=== PATIENT | male | born 1945 | race Caucasian/White ===

== ENCOUNTER → 2018-03-11 09:05 | Outpatient (CLI) | payer MEDICARE, OTHER, SELFPAY ==
[2018-03-11 11:43] LABS: PSA,Total- Diagnostic 8.25 ng/mL (0.0-4.0)
== END ==
PROVIDERS: Family Provider Family Medicine; PCP Family Medicine; Visit Provider Urology
DX: R97.20 Elevated prostate specific antigen [PSA] (principal)
CPT/HCPCS: 36415; 84153

== ENCOUNTER → 2018-06-11 16:59 | Outpatient (CLI) | payer MEDICARE, OTHER, SELFPAY ==
--- NOTE | 2018-06-11 17:05 | RAD_ITS ---
STUDY: X-RAY - PELVIS AND BILATERAL HIPS REASON FOR EXAM: Male, 73 years old. Bilateral hip pain TECHNIQUE: Radiological exam, hip, bilateral, with pelvis when performed; minimum of 5 views COMPARISON: None. FINDINGS: There is a non-specific bowel gas pattern. Normal visualized soft tissue structures. Normal bilateral iliac wings, sacroiliac joints and visualized sacrum. Normal bilateral superior and inferior pubic rami. Normal pubic symphysis. Normal bilateral ischial tuberosities. There are mild arthritic changes of the right hip joint. There are several small calcifications medial to the right lesser trochanter. There are mild arthritic changes of the left hip joint. RAD/Hips B/L min 2 views w/ Pelvis IMPRESSION: 1. There are mild arthritic changes of the left and right hip joints. 2. There are several small calcifications medial to the right lesser trochanter which may represent calcific tendinitis/bursitis. 3. The bony pelvis is intact with no evidence of fracture or lytic or blastic osseous process. Electronically Signed: Wes Prabhakar MD at 19:23 EDT , Service support ,
== END ==
PROVIDERS: Family Provider Family Medicine; PCP Family Medicine; Visit Provider Family Medicine
DX: M25.552 Pain in left hip (principal); M25.551 Pain in right hip
CPT/HCPCS: 73521

== ENCOUNTER → 2018-07-15 16:58 | Outpatient (CLI) | payer MEDICARE, OTHER, SELFPAY | PROVIDERS: Family Provider Family Medicine; PCP Family Medicine; Visit Provider Nurse Practitioner Adult Health | DX: R31.9 Hematuria, unspecified (principal) | CPT/HCPCS: 87077; 87086; 87088; 87186 ==

== ENCOUNTER → 2018-07-16 09:37 | Outpatient (CLI) | payer MEDICARE, OTHER, SELFPAY | PROVIDERS: Family Provider Family Medicine; PCP Family Medicine; Visit Provider Nurse Practitioner Adult Health | DX: R33.9 Retention of urine, unspecified (principal) | CPT/HCPCS: 76770 ==

== ENCOUNTER → 2018-12-16 09:59 | Outpatient (CLI) | payer MEDICARE, SELFPAY ==
[2017-11-22 14:54] VITALS: BMI 31.0
[2018-12-16 10:55] LABS: PSA,Total- Diagnostic 6.08 ng/mL (0.0-4.0)
--- OUTSIDE RECORDS SUMMARY | 2019-02-17 12:30 | XMS RPT_ITS ---
:1945 Author Organization OHIP Care Team Providers Name Role Phone Lopez Flowers Attending Unavailable Lopez Flowers Referring Unavailable Pio Amaya Primary Care Unavailable Lopez Flowers Attending Unavailable Lopez Flowers Referring Unavailable Pio Amaya Primary Care Unavailable Pio Amaya Attending Unavailable Pio Amaya Referring Unavailable Pio Amaya Primary Care Unavailable Akua Obrien Attending Unavailable Pio Amaya Primary Care Unavailable Akua Obrien Attending Unavailable Pio Amaya Primary Care Unavailable PROBLEMS PROBLEMS DATE TYPE CONDITION / CODE ATTENDING STATUS SOURCE 12/16/2018 Unknown R97.20 - Lopez Flowers Active [facility] prostate Hospital specific antigen Repository [PSA] / R97.20(ICD-10) 07/16/2018 Unknown R31.0 - Akua Pinzon Active [facility] hematuria / M [facility] R31.0(ICD-10) Hospital Repository PROCEDURES PROCEDURES No Procedure Records FoundRESULTS RESULTS PSA,TOTAL- DIAGNOSTIC Collected: 12/16/2018 Status: F Source: MAG[facility] 10:13 AM [facility] REPOSITORY TYPE CODE TESTS RESULT OUT OF REFERENCE UNITS RANGE LAB L501.9940 0.0-4.0 ng/mL PSA, High DIAGNOSTIC 6.08 Result Comment: This test was performed using the TPSA assay method for the MicroEdge chemistry system. Values obtained with different assay methods cannot be used interchangably. When changing PSA assays in the course of monitoring a patient, additional sequential testing should be carried out to confirm baseline values. Performed By: #### L501.9940 #### [facility] [address] [place], [address] KIDNEY AND BLADDER Observed: 07/16/2018 Status: F Source: D[place]TM[place] 9:42 AM [facility] REPOSITORY [facility] Imaging Services [address] [place] [address] Kidney and Bladder MR#: [id number] Acct: [id number] Name: PILAR SAMANO Jr. 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 Urinary retention. TECHNIQUE: Ultrasound evaluation of the kidneys was performed with real-time and static orourke-scale imaging. COMPARISON: Comparison is made with prior examination dated November 30, 2016. FINDINGS: RIGHT KIDNEY: Normal location of the right kidney, which is normal in size. The right kidney measures 11.1 cm x 7 cm x 5.8 cm. There is a normal cortex of the right kidney. The renal cortex measures 1.9 cm. There is a 3.4 cm x 4.2 cm x 3.5 cm cyst. There are no right renal calculi. There is no right hydronephrosis. DISTAL RIGHT URETER: There is non-visualization of the distal right ureter. There is no demonstrated right ureterovesical junction calculus. There is a visualized right ureteral jet. LEFT KIDNEY: Normal location of the left kidney, which is normal in size. The left kidney measures 9.6 cm x 4.7 cm x 5.4 cm. There is a normal cortex of the left kidney. The renal cortex measures 1.4 cm. There is no left renal mass or cyst. There are no left renal calculi. There is no left hydronephrosis. DISTAL LEFT URETER: There is non-visualization of the distal left ureter. There is no demonstrated left ureterovesical junction calculus. There is a visualized left ureteral jet. BLADDER: The distended urinary bladder has a volume of 376 ml. The empty urinary bladder has a volume of 1-60 ml. Once again, there is irregularity along the posterior wall of the urinary bladder which may represent trabeculation. There is no demonstrated mass within the urinary bladder. There are no demonstrated bladder calculi. US/Kidney and Bladder IMPRESSION: Stable cyst in the right kidney. Stable irregular thickening at the base of the bladder wall. Electronically Signed: Franklin Wills MD at 11:37 EDT Tel [phone], Service support , CC: Pio Amaya MD; Akua Obrien NP Hand Salter: Signed Observed: 07/15/2018 Status: F Source: [place] CULTURE, URINE 2:00 PM [facility] REPOSITORY Urine Culture ORGANISM 1: Staphylococcus lentus [place] Count >100,000 Staphylococcus lentus: REACTION Benzylpenicillin NF >=0.5 R Cefoxitin *NF - Inducable Clindamycin [place]istan - Gentamicin $ <=0.5 S Levofloxacin $ <=0.12 S Nitrofurantoin $ <=16 S Oxacillin NF <=0.25 S Rifampin $$ <=0.5 S Tetracycline NF 2 S Vancomycin $ 1 S (NF) indicates non-formulary drug at [facility]. Approval by Infectious Disease Specialist required before non-formulary drugs may be ordered and/or dispensed. * CLSI guidelines does not recommend testing of cephalosporins. This interpretation is deduced from Beta-lactam/penicillin results. Performed By: #### M100.0650 #### [facility] [address] [place], [address] HIPS B/L MIN 2 Observed: 06/11/2018 Status: F Source: [place] VIEWS W/ PELVIS 5:05 PM [facility] REPOSITORY [facility] Imaging Services [address] [place] [address] Hips B/L min 2 views w/ Pelvis MR#: [id number] Acct: [id number] Name: PILAR SAMANO Jr. Rep #: [id number] : 1945 M 73 From: Wes Prabhakar MD PCP: Pio Amaya MD Status: REG CLI Study: Hips B/L min 2 views w/ Pelvis Date of Exam: 06/11/18 Exam# [id number] Ordering Dr: Pio Amaya MD STUDY: X-RAY - PELVIS AND BILATERAL HIPS REASON FOR EXAM: Male, 73 years old. Bilateral hip pain TECHNIQUE: Radiological exam, hip, bilateral, with pelvis when performed; minimum of 5 views COMPARISON: None. FINDINGS: There is a non-specific bowel gas pattern. Normal visualized soft tissue structures. Normal bilateral iliac wings, sacroiliac joints and visualized sacrum. Normal bilateral superior and inferior pubic rami. Normal pubic symphysis. Normal bilateral ischial tuberosities. There are mild arthritic changes of the right hip joint. There are several small calcifications medial to the right lesser trochanter. There are mild arthritic changes of the left hip joint. RAD/Hips B/L min 2 views w/ Pelvis IMPRESSION: 1. There are mild arthritic changes of the left and right hip joints. 2. There are several small calcifications medial to the right lesser trochanter which may represent calcific tendinitis/bursitis. 3. The bony pelvis is intact with no evidence of fracture or lytic or blastic osseous process. Electronically Signed: Wes Prabhakar MD at 19:23 EDT , Service support , CC: Pio Amaya MD Hand Salter: Signed PSA,TOTAL- DIAGNOSTIC Collected: 03/11/2018 Status: F Source: [place] 9:25 AM [facility] REPOSITORY TYPE CODE TESTS RESULT OUT OF REFERENCE UNITS RANGE LAB L501.9940 0.0-4.0 ng/mL PSA, High DIAGNOSTIC 8.25 Result Comment: This test was performed using the TPSA assay method for the MicroEdge chemistry system. Values obtained with different assay methods cannot be used interchangably. When changing PSA assays in the course of monitoring a patient, additional sequential testing should be carried out to confirm baseline values. Performed By: #### L501.9940 #### [facility] [address] [place], [address] ALLERGIES ALLERGIES DATE TYPE / CODE NAME / CODE REACTION SEVERITY SOURCE 11/22/2017 Drug levofloxacin Nausea Unknown [facility] Allergy/4160 /[id number]( [facility] [address](SNOMED RXNORM) Repository CT) ENCOUNTERS ENCOUNTERS ADMIT/DISCHARGE ACCOUNT ADMITTING ENCOUNTER LOCATION SOURCE NUMBER CLASS 12/16/2018 [id number] Ambulatory [facility] 2 [facility] ing:LAB Repository 07/16/2018 [id number] Ambulatory [facility] 4 [facility] ing:US Repository 07/15/2018 [id number] Ambulatory [facility] 9 [facility] ing:LABSPEC Repository 06/11/2018 [id number] Ambulatory [facility] 9 [facility] ing:MTRAD Repository 03/11/2018 [id number] Ambulatory [facility] 8 [facility] ing:LAB Repository PAYERS PAYERS ENCOUNTER GUARANTOR PAYER SUBSCRIBER SOURCE 12/16/2018 PILAR Guallpa Primary PILAR Mercedes [place] [facility] Corby Titus: [place], [place] Number: [id number] Repository [address]18[address]Dcc: [phone] [id number] [phone] () Date:2018-12-16 12/16/2018 Secondary NOT GIVENUNK [facility] Insurance[facility]LF [facility]Y [facility]: Effective Repository Date:2018-12-16 07/16/2018 PILAR R Primary PILAR R [facility] [place] Insurance:MEDICARE [place] Community Jr.[address] BPolicy Jr.: [place], [place] Number: [id number] Repository [address]Nai: 330 [id number] [phone] () Date:2018-07-15 07/16/2018 Secondary PILAR R Mago Insurance:UMR KAEL [place] Community [id number] Number: Jr.: [facility] [id number] Repository Date:0909-30-02OG [address] [place] [id number]: 07/16/2018 Tertiary NOT GIVENUNK [facility] Insurance:SELF PAY [facility] Number: Effective Repository Date:2018-07-15 07/15/2018 PILAR R Primary PILAR R [facility] [place] Insurance:MEDICARE [place] Community Jr[address] BPolicy Jr.: [place], [place] Number: [id number] Repository [address]Oqx: 330 [id number] [phone] () Date:2018-07-15 07/15/2018 Secondary PILAR R Mago Insurance:UMR KAEL [place] Community [id number] Number: Jr.: Hospital [id number] Repository Date:[id number] [address] [place] [phone]: 07/15/2018 Tertiary NOT GIVENUNK [place]ago Insurance:SELF PAY [facility] Number: Effective Repository Date:2018-07-15 06/11/2018 PILAR R Primary PILAR R [facility] [place] Insurance:MEDICARE [place] Community Jr.[address] BPolicy Jr.: [place] Number: [id number] Repository 89[address]Uls: [phone] [id number] [phone] () Date:2018-06-11 06/11/2018 Secondary PILAR R Mago Insurance:UMR KAEL [place] [facility] [address]Chsmlk Number: JrCelia: Hospital [id number] Repository Date:[id number] [address] [place] [id number]: 06/11/2018 Tertiary NOT GIVENUNK Mago Insurance:SELF PAY Community [facility] Number: Effective Repository Date:2018-06-11 03/11/2018 PILAR R Primary PILAR R [place]ago [place] [facility] Corby Titus: [place], [place] Number: [id number] Repository [address]Qiu: [phone] [id number] [phone] () Date:2018-03-11 03/11/2018 Secondary PILAR R [facility] Insurance:UMR [facility]AEL [facility] [address]Zulvzo Number: Jr.: Hospital [id number] Repository Date:[id number] [address] [place] [id number]: 03/11/2018 Tertiary NOT GIVENUNK Mago Insurance:SELF PAY Community [facility] Number: Effective Repository Date:2018-03-11
== END ==
PROVIDERS: Family Provider Family Medicine; PCP Family Medicine; Referring Provider Urology; Visit Provider Urology
DX: R97.20 Elevated prostate specific antigen [PSA] (principal)
CPT/HCPCS: 36415; 84153

== ENCOUNTER → 2019-02-13 10:12 | Outpatient (CLI) | payer MEDICARE, SELFPAY ==
[2017-11-22 14:54] VITALS: BMI 31.0
[2019-02-13 13:07] LABS: Anion Gap 9 (5-15); BUN 26 mg/dL (7-18); BUN/Creat Ratio 24.5 RATIO (10-20); Calcium,Total 9.1 mg/dL (8.5-10.1); Chloride 103 mmol/L (98-107); Cholesterol 115 mg/dL (200); Creatinine, Serum 1.06 mg/dL (0.70-1.30); EST Glomerular Filtration Rate 73 mL/min (>60); Est Glom Filt Rate - Afr Amer 88 mL/min (>60); Glucose 136 mg/dL (74-106); High Density Lipoprotein 46 mg/dL; Potassium 3.9 mmol/L (3.5-5.1); Sodium Level 141 mmol/L (136-145); Triglycerides 72 mg/dL; Very Low Density Lipoprotein 14 mg/dL (5-40)
[2019-02-13 13:23] LABS: Vitamin D,25 Hydroxy 27.2 ng/mL (29.95-100.01)
== END ==
PROVIDERS: Family Provider Family Medicine; PCP Family Medicine; Referring Provider Family Medicine; Visit Provider Family Medicine
DX: Z00.00 Encounter for general adult medical examination without abnormal findings (principal); E55.9 Vitamin D deficiency, unspecified
CPT/HCPCS: 36415; 80048; 80061; 82306

== ENCOUNTER → 2019-06-11 14:07 | Outpatient (CLI) | payer MEDICARE, SELFPAY ==
[2017-11-22 14:54] VITALS: BMI 31.0
[2019-06-11 15:34] LABS: PSA,Total- Diagnostic 6.19 ng/mL (0.0-4.0)
== END ==
PROVIDERS: Family Provider Family Medicine; PCP Family Medicine; Referring Provider Urology; Visit Provider Urology
DX: R97.20 Elevated prostate specific antigen [PSA] (principal)
CPT/HCPCS: 36415; 84153

== ENCOUNTER → 2019-08-17 09:43 | Outpatient (CLI) | payer MEDICARE, SELFPAY ==
[2017-11-22 14:54] VITALS: BMI 31.0
[2019-08-17 12:35] LABS: Anion Gap 5 (5-15); BUN 23 mg/dL (7-18); BUN/Creat Ratio 21.1 RATIO (10-20); Calcium,Total 9.5 mg/dL (8.5-10.1); Chloride 104 mmol/L (98-107); Creatinine, Serum 1.09 mg/dL (0.70-1.30); EST Glomerular Filtration Rate 70 mL/min (>60); Est Glom Filt Rate - Afr Amer 85 mL/min (>60); Glucose 151 mg/dL (74-106); Potassium 3.9 mmol/L (3.5-5.1); Sodium Level 138 mmol/L (136-145)
== END ==
PROVIDERS: Family Provider Family Medicine; PCP Family Medicine; Visit Provider Family Medicine
DX: I10 Essential (primary) hypertension (principal)
CPT/HCPCS: 36415; 80048

== ENCOUNTER → 2020-02-08 | Outpatient (CLI) | payer MEDICARE, SELFPAY ==
[2017-11-22 14:54] VITALS: BMI 31.0
== END | disposition home or self-care (01) ==
LOC: LABSPEC 16:27
PROVIDERS: PCP Family Medicine; Referring Provider Urology; Visit Provider Urology
DX: N39.0 Urinary tract infection, site not specified (principal)
CPT/HCPCS: 87077; 87086; 87088; 87186

== ENCOUNTER → 2020-05-16 09:36 | Outpatient (CLI) | payer MEDICARE, SELFPAY ==
[2017-11-22 14:54] VITALS: BMI 31.0
[2020-05-16 12:23] LABS: Anion Gap 5 (5-15); BUN 22 mg/dL (7-18); BUN/Creat Ratio 19.3 RATIO (10-20); Calcium,Total 9.3 mg/dL (8.5-10.1); Chloride 105 mmol/L (98-107); Cholesterol 104 mg/dL (200); Creatinine, Serum 1.14 mg/dL (0.70-1.30); EST Glomerular Filtration Rate 67 mL/min (>60); Est Glom Filt Rate - Afr Amer 81 mL/min (>60); Glucose 164 mg/dL (74-106); High Density Lipoprotein 40 mg/dL; Sodium Level 139 mmol/L (136-145); Triglycerides 81 mg/dL; Very Low Density Lipoprotein 16 mg/dL (5-40)
== END ==
PROVIDERS: PCP Family Medicine; Visit Provider Family Medicine
DX: I10 Essential (primary) hypertension (principal)
CPT/HCPCS: 36415; 80048; 80061

== ENCOUNTER → 2020-08-18 10:23 | Outpatient (CLI) | payer MEDICARE, SELFPAY ==
[2017-11-22 14:54] VITALS: BMI 31.0
[2020-08-18 13:14] LABS: Anion Gap 7 (5-15); BUN 28 mg/dL (7-18); BUN/Creat Ratio 25.9 RATIO (10-20); Calcium,Total 9.6 mg/dL (8.5-10.1); Chloride 103 mmol/L (98-107); Cholesterol 110 mg/dL (200); Creatinine, Serum 1.08 mg/dL (0.70-1.30); EST Glomerular Filtration Rate 71 mL/min (>60); Est Glom Filt Rate - Afr Amer 86 mL/min (>60); Glucose 138 mg/dL (74-106); High Density Lipoprotein 43 mg/dL; Sodium Level 138 mmol/L (136-145); Triglycerides 60 mg/dL; Very Low Density Lipoprotein 12 mg/dL (5-40)
== END ==
PROVIDERS: PCP Family Medicine; Referring Provider Family Medicine; Visit Provider Family Medicine
DX: E11.9 Type 2 diabetes mellitus without complications (principal)
CPT/HCPCS: 36415; 80048; 80061

== ENCOUNTER 2021-11-08 08:02 | Day surgery (SDC) | payer MEDICARE, SELFPAY ==
--- NOTE | 2021-11-06 09:58 | EKG12_ITS ---
Test Reason : PREOP Blood Pressure : / mmHG Vent. Rate : 095 BPM Atrial Rate : 095 BPM P-R Int : 202 ms QRS Dur : 084 ms QT Int : 348 ms P-R-T Axes : 058 -27 021 degrees QTc Int : 437 ms Normal sinus rhythm Normal ECG Confirmed by HAWK MENDEZ, TONIO ([id number]), editorial writer HUONG WAGNER ([id number]) on 11/07/2021 7:27:46 AM Referred By: Lopez Flowers Confirmed By:TONIO ARECHIGA MD
[2021-11-06 10:49] LABS: Hematocrit 40.1 % (40-54); Mean Corp Hgb Conc 34.9 g/dL (32-36); Mean Corpuscular Hgb 31.3 pg (27.0-32.0); Mean Corpuscular Volume 89.5 fL (80-94); Mean Platelet Vol. 9.8 fl (6.2-12.0); Platelet Count 326 K/mm3 (150-450); RBC Distribution Width SD 45.6 fl (35.1-43.9); Red Blood Count 4.48 M/mm3 (4.6-6.2); White Blood Count 9.5 K/mm3 (4.4-11.0)
[2021-11-06 10:56] LABS: International Normalized Ratio 1.1; Prothrombin Time (Protime)PT. 13.4 SECONDS (11.7-14.9)
[2021-11-06 10:57] LABS: Partial Thromboplast Time 31.8 Seconds (24.1-36.2)
[2021-11-06 11:11] LABS: Hemoglobin A1c 7.1 % (3.8-5.6)
[2021-11-06 11:22] LABS: AST(SGOT) 24 U/L (15-37); Alanine Aminotransfer ALT/SGPT 42 U/L (16-61); Albumin, Serum 3.7 g/dL (3.2-5.0); Alkaline Phosphatase 71 U/L (45-117); Anion Gap 9 (5-15); BUN 32 mg/dL (7-18); BUN/Creat Ratio 24.6 RATIO (10-20); Bilirubin, Direct 0.11 mg/dL (0.00-0.30); Calcium,Total 9.5 mg/dL (8.5-10.1); Chloride 101 mmol/L (98-107); EST Glomerular Filtration Rate 57 mL/min (>60); Est Glom Filt Rate - Afr Amer 69 mL/min (>60); Globulin 3.8 g/dL (2.2-4.2); Glucose 250 mg/dL (74-106); Potassium 4.2 mmol/L (3.5-5.1); Protein, Total 7.5 g/dL (6.4-8.2); Sodium Level 134 mmol/L (136-145)
[2021-11-08] MEDS: Lactated Ringers 1,000 ML 15 ML IV (08:25)
[2021-11-08 08:48] VITALS: BP 123/80; PULSE 100; RESP 16; TEMP 37.1; O2SAT 94; BMI 29.4
[2021-11-08 09:00] LABS: Bedside Glucose 196 mg/dL (70-110)
--- NOTE | 2021-11-08 10:10 | PROS_PTH ---
PATIENT: PILAR SAMANO [place] [facility][id number] AGE/SX: 76/M ROOM: RE11/08/[address]: Dr. Lopez Flowers MD : 1945 BED: DIS: 11/08/2021 SPEC #: [id number] RECD: 11/08/21 13:23 STATUS: RIVAS FOLEY #: [id number] BEN: 11/08/21 10:[address]: Lopez Flowers DEPT: SURGICAL PATHOLOGY RECD BY: Prakash Cottrell ENTERED: 11/08/21 15:01 SP TYPE: TURP OTHR DR: Dr. Pio Amaya MD Tissues: Prostate, NOS Procedures: Surgery Specimen Level IV HEADER OPERATION: Cysto, TUR prostate, Olympus PRE-OP DIAGNOSIS: Benign prostatic hyperplasia TISSUE SUBMITTED: Prostate pieces MICROSCOPIC DIAGNOSIS Prostate, transurethral resection: Benign nodular hyperplasia, glandular and stromal types. Mild chronic inflammation. AM:jolanta 11/10/2021 MICROSCOPIC DESCRIPTION Slides are reviewed. GROSS DESCRIPTION Received is one container labeled with the patient's name and designated prostate tissue. The specimen consists of multiple irregular fragments of pink-sánchez, rubbery, soft tissue that in aggregate weigh 9 gm and measure in aggregate 6 x 6 x 0.3 cm. Historical Society Director portions are submitted in ten cassettes. / AM:jolanta 11/09/21 TC:3 CPT: 88946
--- NOTE | 2021-11-08 11:23 | HP.PCM_ITS ---
HPI - General HPI Narrative PILAR SAMANO, is a 76 M who presents for a TURP he had a TURP about 20 years ago has significant regrowth to point he need a whole TURP again had Urolift 2 years ago which failed so will remove the Urolift clips at same time. [facility] Medical History (Updated 11/01/21 @ 13:15 by Marielos Richards) Arthritis Bladder disease Bone fracture Cataracts, bilateral Diabetes Diabetes Dietary restriction Easy bruising Gastric reflux GERD (gastroesophageal reflux disease) Hearing problem High blood pressure History of pain when walking History of renal disease History of stress test Hoarseness Hx of sinus tachycardia Hypertension Indwelling urethral catheter present Non-smoker Prostate disorder Skin cancer Wears dentures Wears glasses Wears hearing aid Wears partial dentures Home Medications lisinopril-hydrochlorothiazide 1 tab PO QHS 11/22/17 [History Last Taken Unknown] omeprazole 20 mg PO QHS 11/22/17 [History Last Taken Unknown] metformin 500 mg tablet 500 mg PO DAILY 01/02/21 [History Last Taken Unknown] sulfamethoxazole-trimethoprim [Bactrim DS] 1 tab PO BID #10 tab 11/08/21 [Rx Last Taken Unknown] Allergy/AdvReac Type Severity Reaction Status Date / Time levofloxacin [From Levaquin] AdvReac Nausea Verified 11/08/21 08:23 Family History (Updated 01/02/21 @ 14:26 by Kimber Harding) Other Arthritis Diabetes Hypertension Skin cancer Surgical History (Updated 11/01/21 @ 13:15 by Marielos Richards) History of bilateral knee replacement History of prostate surgery Hx of hernia repair Hx of left cataract extraction Hx of nasal septoplasty Hx of right cataract extraction Social History (Updated 01/02/21 @ 14:27 by Kimber Harding) Smoking Status: Never smoker alcohol intake: never substance use type: does not use additional social history: Does take aspirin Does take Ibuprofen as needed Vital Signs Vital Signs Vital Signs: 11/08/21 08:48 Temperature 98.8 F Temperature Source Temporal Pulse Rate 100 Respiratory Rate 16 Respiratory Pattern Normal Blood Pressure 123/80 H Blood Pressure Mean 94 Blood Pressure Source Monitor Blood Pressure Position Semi-Fowlers Blood Pressure Location Left Arm Pulse Ox 94 Oxygen Delivery Method Room Air Weight Weight: 93 kg Body Mass Index (BMI) 29.4 Results Lab / Micro Data Result Diagrams: 11/06/21 10:18 12/13/21 10:18 Labs: Laboratory Results - last 24 hr 11/08/21 08:41: POC Glucose 196 H
--- NOTE | 2021-11-08 11:24 | PCM.DC ---
Discharge Instructions Diet Discharge Diet: No restrictions Activity Discharge Activity: Return to Normal Activity and May Not Drive (while taking narcotic pain medications.) Dressing / Incision Call your doctor if you observe: Fever of 101 or Higher Follow Up Care Please Follow Up With: Lopez Flowers MD When: Call [phone] for an appointment Test Results: Test results from this visit will be discussed in further detail at your follow-up appointment, if applicable. Discharge Plan Admission Primary Reason for Your Visit: TURP and removal of urolift (foreign object) Attending Provider: Lopez Flowers Primary Care Provider: Pio Amaya Discharge Orders/Prescriptions Prescriptions: New sulfamethoxazole-trimethoprim [Bactrim DS] 800-160 mg tablet 1 tab PO BID Qty: 10 RF: 0 Continued metformin 500 mg tablet 500 mg PO DAILY RF: 0 omeprazole 20 MG capsule,delayed release(DR/EC) 20 mg PO QHS RF: 0 lisinopril-hydrochlorothiazide 1 TABLET tablet 1 tab PO QHS RF: 0 Discontinued dutasteride 0.5 mg capsule 0.5 mg PO DAILY RF: 0 Referrals / Follow Up: Lopez Flowers MD [STAFF PHYSICIAN] - Pio Amaya MD [Primary Care Provider] - Disposition Disposition (needs filled in before D/C Order can be placed): Home, Self Care
--- NOTE | 2021-11-08 11:25 | OP.PCM_ITS ---
Report of Operation Date of Procedure: 11/08/21 Pre-Operative Diagnosis: BPH with obstruction Post-Operative Diagnosis: The same status post UroLift failed Surgery/Procedure Performed:: Transurethral section of the prostate and removal of UroLift clips Description of Surgical Findings:: Patient was taken back to the operating room after smooth induction of general anesthesia he was placed in dorsolithotomy position. This is a 76-year-old male who 20 years ago had a TURP and at this point he has significant regrowth and is going to need a whole TURP procedure again to relieve the obstruction since he has complete regrowth of the prostate essentially a fresh TURP will need to be done in order to the alleviate the obstruction he did have UroLift procedure about 2 years ago which failed and he is now having more difficulty with urination so he can remove the UroLift clips at the same time. Patient was taken back to the operating room at the smooth induction of general anesthesia he was placed in dorsolithotomy position. Went of the bladder with a 21 Salvadorean rigid cystourethroscope identified the verumontanum identify the obstructive lateral tissues and median lobe I then put in the resectoscope it was a 24 Salvadorean noncontinuous flow resectoscope I used the button first to smooth out the resection identify all the UroLift clips and using the button I removed the clips and remove them out of the bladder I then switched over to the resectoscope and then resected the floor the prostate resect the right lobe of the prostate resect the left lobe the prostate very carefully resected the apical tissue I went beyond the sphincter the sphincter was intact we did a flow test had a nice wide open flow after doing a complete resection of the prostate checked the left and right ureter orifice ease were uninjured obtain hemostasis so he can go home with a catheter and then all the chips were removed from the bladder and the patient's anesthetic was reversed he was taken back to the PACU in good condition he will go home with a Robbins catheter with a catheter will be removed next week in the office. Surgery took over an hour and a half since was essentially redoing the entire TURP. CPT 26275 Surgeon: elliot Type of Anesthesia: General Drains: 20 fr robbins Admit VTE Documentation VTE Present on Admission: No VTE Mechan Device Prophylaxis: SCD's
[2021-11-08 11:31] VITALS: BP 123/78; BP 123/80; PULSE 90; RESP 18; TEMP 36.3; O2SAT 97
[2021-11-08 11:45] VITALS: BP 109/76; BP 123/80; PULSE 85; RESP 16; O2SAT 96
[2021-11-08 11:45] LABS: Bedside Glucose 186 mg/dL (70-110)
[2021-11-08 12:00] VITALS: BP 103/62; BP 123/80; PULSE 85; RESP 16; O2SAT 98
[2021-11-08 12:08] VITALS: BP 102/81; BP 123/80; PULSE 84; RESP 16; TEMP 36.1; O2SAT 100
[2021-11-08 12:57] VITALS: BP 123/80; BP 124/63; PULSE 88; RESP 16; TEMP 36.6; O2SAT 99
== END 2021-11-08 13:21 | disposition home or self-care (01) ==
LOC: SDC 08:05 → AC 08:05
PROVIDERS: Anesthesiology; PCP Family Medicine; Referring Provider Urology; Visit Provider Urology
PROC: (CPT 52630; principal; 2021-11-08 10:00)
DX: N40.1 Benign prostatic hyperplasia with lower urinary tract symptoms (principal); N13.8 Other obstructive and reflux uropathy; R33.8 Other retention of urine; R39.12 Poor urinary stream; R39.14 Feeling of incomplete bladder emptying; E11.9 Type 2 diabetes mellitus without complications; E11.36 Type 2 diabetes mellitus with diabetic cataract; I10 Essential (primary) hypertension; K21.9 Gastro-esophageal reflux disease without esophagitis; Z79.84 Long term (current) use of oral hypoglycemic drugs; Z79.82 Long term (current) use of aspirin; Z79.899 Other long term (current) drug therapy; Z96.653 Presence of artificial knee joint, bilateral; Z90.79 Acquired absence of other genital organ(s)
CPT/HCPCS: 52630; 36415; 80048; 80076; 82962; 83036; 85027; 85610; 85730; 88305; 93005; J7120; J2405

== ENCOUNTER 2021-12-13 10:18 | Outpatient (CLI) | payer MEDICARE, SELFPAY ==
[2021-12-13 12:23] LABS: ALB/GLOB Ratio 1.1 RATIO (0.9-2.4); AST(SGOT) 17 U/L (15-37); Alanine Aminotransfer ALT/SGPT 25 U/L (16-61); Alkaline Phosphatase 53 U/L (45-117); Anion Gap 8 (5-15); BUN 23 mg/dL (7-18); BUN/Creat Ratio 20.5 RATIO (10-20); Chloride 102 mmol/L (98-107); Cholesterol 117 mg/dL (200); Creatinine, Serum 1.12 mg/dL (0.70-1.30); EST Glomerular Filtration Rate 68 mL/min (>60); Est Glom Filt Rate - Afr Amer 82 mL/min (>60); Globulin 3.5 g/dL (2.2-4.2); Glucose 166 mg/dL (74-106); High Density Lipoprotein 44 mg/dL; Potassium 4.1 mmol/L (3.5-5.1); Protein, Total 7.5 g/dL (6.4-8.2); Sodium Level 137 mmol/L (136-145); Triglycerides 79 mg/dL; Very Low Density Lipoprotein 16 mg/dL (5-40)
== END 2021-12-13 23:59 | disposition short-term general hospital (02) ==
LOC: MFPLAB 10:21
PROVIDERS: PCP Family Medicine; Referring Provider Family Medicine; Visit Provider Family Medicine
DX: I10 Essential (primary) hypertension (principal)
CPT/HCPCS: 36415; 80053; 80061

== ENCOUNTER 2022-08-22 16:54 | Emergency (ER) | payer MEDICARE, SELFPAY ==
[2022-08-22 16:55] VITALS: BP 177/102; PULSE 93; RESP 16; TEMP 36.6; O2SAT 98; BMI 30.8
--- NOTE | 2022-08-22 17:09 | EDS_ITS ---
HPI History of Present Illness Chief Complaint: Upper Extremity Injury Detail of Chief Complaint: Fall with injury to left long finger Informant: patient Narrative Narrative: Patient presents the emergency department with complaint of a fall and injury to his left long finger. Patient states that he was in the shed and the wind blew the door shut and he kind of fell backwards and he is not sure what he landed on but injured his left long finger. Patient sustained a small laceration to the palm. Patient unsure of his last tetanus. Patient is right-hand dominant. He denies striking his head. He denies neck pain, chest pain, or abdominal pain. [facility] Medical History (Updated 08/22/22 @ 18:[address] Susan Ortega, ) Arthritis Bladder disease Bone fracture Cataracts, bilateral Diabetes Diabetes Dietary restriction Easy bruising Gastric reflux GERD (gastroesophageal reflux disease) Hearing problem High blood pressure History of pain when walking History of renal disease History of stress test Hoarseness Hx of sinus tachycardia Hypertension Indwelling urethral catheter present Non-smoker Prostate disorder Skin cancer Wears dentures Wears glasses Wears hearing aid Wears partial dentures Home Medications lisinopril 10 mg-hydrochlorothiazide 12.5 mg tablet 1 tab PO QHS 11/22/17 [History Last Taken Unknown] omeprazole 20 mg capsule,delayed release 20 mg PO QHS 11/22/17 [History Last Taken Unknown] metformin 500 mg tablet 500 mg PO DAILY 01/02/21 [History Last Taken Unknown] sulfamethoxazole 800 mg-trimethoprim 160 mg tablet (Bactrim DS) 1 tab PO BID #10 tabs 11/08/21 [Rx Last Taken Unknown] Allergy/AdvReac Type Severity Reaction Status Date / Time levofloxacin [From Levaquin] AdvReac Nausea Verified 08/22/22 16:54 Family History (Updated 01/02/21 @ 14:26 by Kimber Harding) Other Arthritis Diabetes Hypertension Skin cancer Surgical History (Updated 11/01/21 @ 13:15 by Marielos Richards) History of bilateral knee replacement History of prostate surgery Hx of hernia repair Hx of left cataract extraction Hx of nasal septoplasty Hx of right cataract extraction Social History (Updated 01/02/21 @ 14:27 by Kimber Harding) Smoking Status: Never smoker alcohol intake: never substance use type: does not use additional social history: Does take aspirin Does take Ibuprofen as needed ROS ROS ED Review of Systems ROS Unobtainable: other Constitutional Constitutional ED: Reports lethargy; Denies chills, fever(s), sweats or weight loss Eyes Eyes: Denies blurry vision, change in vision or diplopia ENT ENT ED: Denies rhinorrhea or sore throat Cardiovascular Cardiovascular: Denies chest pain, orthopnea or racing heartbeat Respiratory/Chest Respiratory/Chest: Denies cough, dyspnea, dyspnea on exertion, orthopnea or sputum Gastrointestinal Gastrointestinal: Denies abdominal pain, diarrhea, nausea or vomiting Genitourinary Genitourinary ED: Denies dysuria, hematuria or urinary frequency Musculoskeletal Musculoskeletal: Reports other Details: Left long finger injury/pain with laceration to left hand ; Denies arthralgias, back pain, myalgias or neck pain Integumentary Denies abscess, Abrasions or rash Neurologic Neurologic: Denies headache(s) or weakness Psychiatric Psychiatric: Denies anxiety, depression or suicidal thoughts Endocrine Endocrinology: Denies polydipsia, polyphagia or polyuria Hematologic/Lymphatic Hematologic/Lymphatic: Denies easy bleeding, easy bruising or lymphadenopathy Allergic/Immunologic Allergic/Immunologic ED: Denies mouth swelling, tongue swelling or urticaria EXAM Physical Exam Const Vital Signs: 08/22/22 16:55 Temperature 97.8 F Temperature Source Temporal Pulse Rate 93 Respiratory Rate 16 Blood Pressure 177/102 H Blood Pressure Mean 127 Pulse Ox 98 Oxygen Delivery Method Room Air Positive well nourished and well developed General Appearance ED: well developed and NAD HEENT Reports TM's clear and moist mucous membranes normocephalic and atraumatic; Negative for trauma or tenderness Tympanic Membrane ED: Yes TM's clear Eyes PERRL and EOMs intact bilaterally General Eye ED: Negative for pale conjunctiva or scleral icterus Neck no lymphadenopathy, supple and no JVD General: Negative for tenderness Chest Wall inspection of chest normal and palpation of chest normal Chest: Negative for tenderness Resp normal respiratory effort and clear to auscultation bilaterally Effort and Inspection: Negative for respiratory distress or pain with movement Auscultation: Negative for rhonchi, wheezes or diminished lung sounds Cardio regular rate, regular rhythm, S1 normal heart sound, S2 normal heart sound and no murmurs Peripheral Pulses: pulses 2+ throughout GI normal to inspection, nondistended, normoactive bowel sounds, soft to palpation, non-tender, non-distended and no masses Back/Spine no CVA tenderness and no thoracic nor lumbar tenderness Extremity Extremity Narrative: PatientLeft hand-has deformity to the PIP joint of the left long finger with decreased ability to flex and extend the digit at the PIP joint. Neurovascular intact distally. Evaluation of the left hand reveals a 2.5 cm laceration over the palmar aspect of the third MCP joint. There is no bony tenderness on exam of the hand. General Extremety ED: Negative for edema General Extremity: Negative for edema Neuro oriented x3, CN's II-XII intact bilaterally, no sensory deficits noted and gait normal Sensorium / Orientation: awake, alert, oriented to person, oriented to place and oriented to time Motor Exam: strength 5/5 throughout and strength abnormal Psych mental status grossly normal Skin no rashes or lesions noted and no wounds MDM MDM MDM Narrative Medical decision making narrative: I recommended we reduce his dislocated finger to which I given the option of digital block versus attempting to reduce it without any type of anesthesia initially. Patient wanted to try without anesthesia initially however the finger was not easily reduced this way. I did perform a digital block using 1% lidocaine total of 8 cc. With traction I was able to reduce the dislocation. Repeat x-rays were obtained which showed good reduction with no obvious fractures. Patient will be placed in aluminum splint and referred to orthopedics for follow-up. Patient have sutures removed in 10 days. Radiography Diagnostic Testing: Three-view x-rays of the long finger of the left hand obtained interpreted by myself as a dislocation of the PIP joint without obvious new fractures. Patient was noted to have an old fracture of the middle phalanx that is well-healed. Radiology was in agreement. Post reduction x-rays 3 views obtained interpreted by myself as good reduction without evidence of fracture. Official report from radiology will be pending Procedures Lacerations Left hand laceration: Length: 0.98 in Depth: Sub Q Shape: Linear Prep: Sammy Laceration repair: Irrigated, Lidocaine and Local Irrigated (ml): 50 Number of Sutures/[place]: 2 Suture Information: Ethilon, Simple and 5-0 Discharge Plan Triage Chief Complaint: Upper Extremity Injury ED Provider: Susan Ortega Dx/Rx/DC Orders Clinical Impression: Dislocation closed, finger, Hand laceration Instructions: ED Finger Dislocation, ED Laceration Extremity Prescriptions: No Action metformin 500 mg tablet 500 mg PO DAILY omeprazole 20 MG capsule,delayed release(DR/EC) 20 mg PO QHS Label Comments: lisinopril-hydrochlorothiazide 1 TABLET tablet 1 tab PO QHS sulfamethoxazole-trimethoprim [Bactrim DS] 800-160 mg tablet 1 tab PO BID Qty: 10 0RF Primary Care Provider: Pio Amaya Referrals: Santos Uriarte DO [Med Staff - Active Staff] - 5-7 Days Pio Amaya MD [Primary Care Provider] - 10 Day for suture removal Disposition Disposition: Home, Self Care
--- NOTE | 2022-08-22 17:15 | RAD_ITS ---
STUDY: X-RAY - LEFT HAND, ATTENTION 3 FINGER REASON FOR EXAM: Male, 77 years old. injury TECHNIQUE: 3 view(s) of the finger were obtained. COMPARISON: None. FINDINGS: Normal metacarpal head. Normal metacarpophalangeal joint. Normal proximal phalanx. Healed fracture of the shaft of the middle phalanx with abundant callus formation. Normal distal phalanx. Acute dorsal dislocation of the proximal interphalangeal joint. Normal distal interphalangeal joint. RAD/Finger(s) Min 2 Views IMPRESSION: Acute dorsal dislocation of the proximal interphalangeal joint. Electronically Signed: Arcadio Ingram MD at 17:39 EDT ,
[2022-08-22] MEDS: Diphth,Pertuss(Acell),Tet Vac 0.5 ML Vial IM (17:42)
[2022-08-22] MEDS: Lidocaine 1% (20 ml mdv) 20 ML Vial 8 ML INFILT (17:55)
--- NOTE | 2022-08-22 18:06 | RAD_ITS ---
INDICATION: reduction EXAMINATION/TECHNIQUE: X-RAY - LEFT HAND XR Fingers Min 2 Views 3 VIEWS COMPARISON: 08/22/2022 FINDINGS: SOFT TISSUES: Mild soft tissue swelling is present. No radiopaque foreign body. BONES/JOINTS: Interval closed reduction of the previously noted third PIP dislocation. There is normal alignment. There is deformity of the middle phalanx of the third digit consistent with healed fracture. There is however deformity of the volar plate suspicious of a volar plate avulsion fracture. No other acute bony changes noted. RAD/Finger(s) Min 2 Views IMPRESSION: 1. Interval closed reduction of previous third PIP dislocation. 2. There is normal alignment. Irregular configuration of volar plate of the middle phalanx however suspicious of a volar plate avulsion fracture. 3. Deformity of the mid diaphysis of the middle phalanx consistent with healed fracture. 4. No other acute bony or joint space abnormalities. Electronically Signed: Arcadio Viera MD at 18:29 EDT ,
[2022-08-22 18:36] VITALS: PULSE 84; RESP 18; O2SAT 97
== END 2022-08-22 18:38 | disposition home or self-care (01) ==
PROVIDERS: Emergency Provider Emergency Medicine; PCP Family Medicine; Visit Provider Emergency Medicine
DX: S63.283A Dislocation of proximal interphalangeal joint of left middle finger, initial encounter (principal); E11.9 Type 2 diabetes mellitus without complications; S61.412A Laceration without foreign body of left hand, initial encounter; I10 Essential (primary) hypertension; W19.XXXA Unspecified fall, initial encounter; Z79.84 Long term (current) use of oral hypoglycemic drugs; Z79.899 Other long term (current) drug therapy; Z23 Encounter for immunization
CPT/HCPCS: 26340; 12001; 73140; 90471; 90715; 99282

== ENCOUNTER 2022-09-20 10:30 | Outpatient (RCR) | payer MEDICARE, SELFPAY ==
--- NOTE | 2022-08-30 14:52 | HP.OTEVAL_ITS ---
Patient's Visit Information PILAR SAMANO is a 77 year old M, referred to Occupational Therapy by Dr. Santos Uriarte, DO, with a diagnosis of left MF proximal interphalanx joint dislocation. Date of Evaluation: 08/30/22 Occupational Therapist: Amy Nation, CHIVO/Severiano, CHT - Subjective This 77 year old male was seen for OT eval with dx of dislocated of lef PIP of middle finger. this happened about 2 weeks ago. pt states he plays the guitar and would like to return to playing as soon as he can. pt states stiffness not r eally painful- pt arrives MF wilber taped to RF. pt states he is limited with use of Left hand with ADL and IADLs and would like to return to is PLOF. - ROM MP: right 0/85 left 0/70 PIP: right 0/90 left 0/55 DIP: right 0/70 left 0/0 - Edema PIP: right 7.5 left 8.4 - Quick DASH-Disab of Arm,Shoulder& Hand Quick DASH Score: 68.3325 - Goals Goal:ROM equal to unaffected hand: Yes Goal:Pharmacogeneticist/Pinch strength at least 75% of unaffected hand: Yes Goal:No pain with affected hand use: Yes Goal:PIP Circumferences equal to unaffected hand: Yes Goal:Full use of affected hand in daily activities including: Yes - Rehabilitation General Assessment: pt demo limited left MF PIP ROM, edema and weakness increasing need of assistance with yard work tasks. pt also limited with composite fist increasing difficulty with ADLs and IADls. pt would benefit from skilled OT services 1x week for 3 weeks to regain his strength and ROM to return to his PLOF. Today therapist terri. custom orthosis for wilber almanzar, ed. pt on ROM and light stretch at his end rang. pt demo understanding and agree to POC. Rehabilitation Potential: Good - Anticipated Interventions A/AAROM/PROM, Strengthening, Modalities, Orthoses, Joint Protection/Energy Conservation, Education re Diagnosis - Visit Plan Frequency: 1x/Week Duration: 3 Weeks TEXT: Thank you for the opportunity to evaluate your patient. For Medicare and Medicare HMO plans, please review the plan of care and approve it. It will need to be FAXED BACK to us at [phone] for Medicare purposes. Please let me know if there are questions or concerns regarding this plan of care. Physician Signature: Date:
--- NOTE | 2022-11-21 10:12 | HP.OT.NRP ---
PILAR SAMANO was seen in my office for initial evaluation on 08/30/22. The following Plan of Care was established for this patient: Initial Frequency: 1x/Week Initial Duration: 3 Weeks Anticipated Interventions: A/AAROM/PROM, Strengthening, Modalities, Orthoses, Joint Protection/Energy Conservation, Education re Diagnosis This patient was last seen in our office 09/20/22. Pertinent comments regarding their Occupational therapy will appear below: pt was last seen on 09/20/22 and made great gains in ROM. pt has not scheduled further apts and due to time lapse in services pt d/c. At this point I will be discontinuing this patient from occupational therapy. I would be happy to see this patient again in the future if found appropriate by the physician. Thank you! Amy Nation, OTR/L, CHT
== END 2022-09-20 19:00 | disposition home or self-care (01) ==
LOC: OT 10:30
PROVIDERS: PCP Family Medicine; Referring Provider Student in an Organized Health Care Education/Training Program; Visit Provider Student in an Organized Health Care Education/Training Program
DX: S63.283A Dislocation of proximal interphalangeal joint of left middle finger, initial encounter (principal)
CPT/HCPCS: 97140; 97166; 97530

== ENCOUNTER → 2023-03-12 | Outpatient (CLI) | payer MEDICARE, SELFPAY ==
[2023-03-12 12:06] LABS: PSA,Total - Annual Screen 2.18 ng/mL (0.00-4.00)
== END | disposition home or self-care (01) ==
LOC: LAB 10:58
PROVIDERS: PCP Family Medicine; Referring Provider Registered Nurse; Visit Provider Registered Nurse
DX: Z12.5 Encounter for screening for malignant neoplasm of prostate (principal)
CPT/HCPCS: 36415; 84153; G0103

== ENCOUNTER → 2023-07-10 | Outpatient (CLI) | payer MEDICARE, SELFPAY ==
[2023-07-10 13:02] LABS: Anion Gap 7 (5-15); BUN 19 mg/dL (7-18); Calcium,Total 9.7 mg/dL (8.5-10.1); Chloride 100 mmol/L (98-107); Cholesterol 101 mg/dL (200); EST Glomerular Filtration Rate 77 mL/min (>60); Est Glom Filt Rate - Afr Amer 93 mL/min (>60); Glucose 128 mg/dL (74-106); High Density Lipoprotein 50 mg/dL; Sodium Level 135 mmol/L (136-145); Triglycerides 56 mg/dL; Very Low Density Lipoprotein 11 mg/dL (5-40)
== END | disposition home or self-care (01) ==
LOC: MFPLAB 11:34
PROVIDERS: PCP Family Medicine; Visit Provider Family Medicine
DX: I10 Essential (primary) hypertension (principal); N39.0 Urinary tract infection, site not specified
CPT/HCPCS: 36415; 80048; 80061

== ENCOUNTER → 2023-10-02 | Outpatient (CLI) | payer MEDICARE, SELFPAY ==
[2023-10-02 11:31] LABS: Creatinine, Serum 1.03 mg/dL (0.70-1.30); EST Glomerular Filtration Rate 74 mL/min (>60); Est Glom Filt Rate - Afr Amer 90 mL/min (>60)
== END | disposition home or self-care (01) ==
LOC: LAB 09:55
PROVIDERS: PCP Family Medicine; Visit Provider Student in an Organized Health Care Education/Training Program
DX: N28.9 Disorder of kidney and ureter, unspecified (principal)
CPT/HCPCS: 36415; 82565

== ENCOUNTER 2024-03-30 22:44 | Inpatient (IN) | payer MEDICARE, SELFPAY ==
[2024-03-30 22:44] VITALS: BP 137/99; PULSE 93; RESP 16; TEMP 36.3; O2SAT 97; BMI 28.9
--- NOTE | 2024-03-30 23:49 | CT_ITS ---
INDICATION: distension, nausea, no BM EXAMINATION: CT ABDOMEN AND PELVIS WITHOUT CONTRAST - CT Abdomen And Pelvis W/O Contrast Injection TECHNIQUE: Helically acquired images were obtained of the abdomen and pelvis without oral or IV contrast. A radiation dose optimization technique was used for this scan. IV Contrast dosage and agent: None. Oral contrast: None. RADIATION DOSAGE (If Supplied By Facility): CTDIvol = ( 15.24 ) mGy, DLP = ( 822.45 ) mGycm COMPARISON: No relevant prior comparison study available FINDINGS: LOWER CHEST: Lung bases are clear. No cardiomegaly or pericardial effusion. LIVER: Homogeneous. No focal mass. GALLBLADDER AND BILIARY TREE: Cholelithiasis. No gallbladder distension or wall edema. No intra- or extrahepatic biliary ductal dilation. PANCREAS: No focal cystic or solid mass. SPLEEN: Normal size without focal cystic or solid mass. ADRENAL GLANDS: No nodules. KIDNEYS AND URETERS: Normal renal size and position. No hydronephrosis. PERITONEUM: No ascites or free air. No other fluid collection. BOWEL: No evidence of acute appendicitis. No stomach or bowel distension. No focal inflammatory change. There is sigmoid diverticulosis. LYMPH NODES: No enlarged mesenteric or retroperitoneal lymph nodes. VESSELS: Aorta is non-dilated. URINARY BLADDER: Unremarkable. REPRODUCTIVE ORGANS: No pelvic masses. ABDOMINAL WALL: Small bilateral inguinal hernias containing fat. BONES: Chronic bilateral pars defect of L5 with grade 2 [address]yl[address]hesis at L5-S1. CT/Abdomen/Pelvis without Cont IMPRESSION: Cholelithiasis. 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 Electronically Signed: Elroy Cazares MD at 1:37 EDT ,
--- NOTE | 2024-03-30 23:50 | ED.VIS.GI ---
HPI HPI - GI History of Present Illness Chief Complaint: Constipation Informant: patient and spouse/S.O. Narrative Narrative: Patient has several complaints related to his bowels and his bladder. He states over the last 1-2 weeks he has been having off-and-on constipation and problems going, as well as some diarrhea when he would take Metamucil and MiraLAX. This all started when he was eating oatmeal. His doctor put him on Metamucil for few days, it was excessive for couple days and then he would stop going again. Then he switched to MiraLAX, again had watery diarrhea 1 day, good bowel movements another day, and now for the last 2 days has had very little, with hard stool and small amounts this morning, bloating, nausea. No vomiting. He states he probably drank less fluids than usual this past day although initially thought he drank normally, and he noticed that he has urinated less in volume and less frequently than usual all day today, which prompted his visit to the emergency department. He denies any significant abdominal pain. With regards to the MiraLAX, he states he has been doing no more than 1 capful per day, less than 1 week now. [facility] Medical History Arthritis Bladder disease Bone fracture Cataracts, bilateral Diabetes Diabetes Dietary restriction Easy bruising Gastric reflux GERD (gastroesophageal reflux disease) Hearing problem High blood pressure History of pain when walking History of renal disease History of stress test Hoarseness Hx of sinus tachycardia Hypertension Indwelling urethral catheter present Non-smoker Prostate disorder Skin cancer Wears dentures Wears glasses Wears hearing aid Wears partial dentures Home Medications omeprazole 20 mg capsule,delayed release 20 mg PO QHS 11/22/17 [History Last Taken Unknown] metformin 500 mg tablet 500 mg PO DAILY 01/02/21 [History Last Taken Unknown] lisinopril 20 mg-hydrochlorothiazide 25 mg tablet 1 tab PO DAILY 03/31/24 [History Last Taken Unknown] sertraline 25 mg tablet 25 mg PO DAILY 03/31/24 [History Last Taken Unknown] Allergy/AdvReac Type Severity Reaction Status Date / Time hydrochlorothiazide AdvReac Other Verified 03/31/24 02:44 levofloxacin [From Levaquin] AdvReac Nausea Verified 03/30/24 22:46 Family History Other Arthritis Diabetes Hypertension Skin cancer Surgical History History of bilateral knee replacement History of prostate surgery Hx of hernia repair Hx of left cataract extraction Hx of nasal septoplasty Hx of right cataract extraction Social History Smoking Status: Never smoker alcohol intake: never substance use type: does not use additional social history: Does take aspirin Does take Ibuprofen as needed ROS ROS ED Constitutional Constitutional ED: Denies chills or fever(s) Eyes Eyes: Denies change in vision or diplopia ENT ENT ED: Denies rhinorrhea or sore throat Cardiovascular Cardiovascular: Denies chest pain or palpitations Respiratory/Chest Respiratory/Chest: Denies cough or dyspnea Gastrointestinal Gastrointestinal: Reports as per HPI, constipation, diarrhea and nausea; Denies abdominal pain or vomiting Genitourinary Genitourinary ED: Denies dysuria or hematuria Musculoskeletal Musculoskeletal: Denies back pain or neck pain Integumentary Denies abscess or rash Neurologic Neurologic: Denies headache(s), paresthesias or weakness Psychiatric Psychiatric: Denies depression or suicidal thoughts EXAM Physical Exam Const Vital Signs: 03/30/24 22:44 03/31/24 00:44 03/31/24 02:00 Temperature 97.4 F L 97.9 F Temperature Source Temporal Oral Pulse Rate 93 75 65 Respiratory Rate 16 20 H 16 Blood Pressure 137/99 H 112/80 Blood Pressure Mean 111 90 Pulse Ox 97 95 99 Oxygen Delivery Method Room Air Room Air Room Air Positive well nourished and well developed General Appearance ED: well developed and NAD HEENT Reports moist mucous membranes normocephalic and atraumatic Eyes PERRL and EOMs intact bilaterally Neck full ROM and supple Resp normal respiratory effort and clear to auscultation bilaterally Cardio regular rate, regular rhythm and no murmurs GI non-tender GI Narrative: Bowel sounds present but hypoactive. There is an intermittent hernia only when he flexes the abdominal musculature, ventral supraumbilical. Nontender. No erythema. Inspection: abdominal distention Auscultation: hypoactive bowel sounds Palpation: soft Back/Spine no CVA tenderness General Back: other FROM Extremity normal to inspection General Extremety ED: Negative for edema, pulses abnormal or tenderness General Extremity: Negative for edema or pulses abnormal Neuro oriented x3, CN's II-XII intact bilaterally and no sensory deficits noted Sensorium / Orientation: awake and alert Motor Exam: strength 5/5 throughout Psych Mood & Affect: anxious Skin no rashes or lesions noted and no wounds MDM MDM MDM Narrative Medical decision making narrative: My suspicion is that as a result of the diarrhea and decreased oral intake, the patient has some dehydration, which is why he is producing less urine. Therefore I obtained some electrolytes and blood counts, his sodium is dangerously low at 119. He has had no seizure activity or confusion. His total bilirubin is acutely elevated at 1.8 as well. Given this and his abdominal distention the CT was obtained. I reviewed the images and the report which I agree with, other than a gallstone it shows nothing acute. Clinically he does not have a Garcia's, he does not have a leukocytosis, and I do not think he has acute cholecystitis. However, he needs to be admitted because of the hyponatremia, potentially given 3% sodium chloride solution, and may need further workup for possible biliary obstruction related to stones. Lab Data Attestation: I reviewed the patient's lab results. Labs: Laboratory Results - last 24 hr 03/31/24 00:03 WBC 7.6 RBC 4.63 Hgb 14.2 Hct 38.6 L MCV 83.4 MCH 30.7 MCHC 36.8 H RDW Std Deviation 40.1 RDW Coeff of Minnie 13.2 Plt Count 186 MPV 11.0 Immature Gran % (Auto) 0.300 Neut % (Auto) 70.1 H Lymph % (Auto) 15.9 L [place] % (Auto) 12.2 H Eos % (Auto) 1.2 Baso % (Auto) 0.3 Absolute Neuts (auto) 5.3 Absolute Lymphs (auto) 1.20 Nucleated RBC % 0 Sodium 119 L* Potassium 3.7 Chloride 83 L Carbon Dioxide 26.0 Anion Gap 10 BUN 15 Creatinine 0.87 Estim Creat Clear Calc 80.82 Est GFR (MDRD) Af Amer 110 Est GFR (MDRD) Non-Af 91 BUN/Creatinine Ratio 17.3 Glucose 140 H Calcium 9.2 Total Bilirubin 1.80 H AST 36 ALT 26 Alkaline Phosphatase 56 Total Protein 6.8 Albumin 4.0 Globulin 2.8 Albumin/Globulin Ratio 1.4 Urine Color Yellow Urine Clarity Clear Urine pH 7.0 Ur Specific [place] 1.010 Urine Protein Negative Urine Glucose (UA) Normal Urine Ketones Negative Urine Occult Blood 25 H Urine Nitrite Negative Urine Bilirubin Negative Urine Urobilinogen Normal Ur Leukocyte Esterase Negative Urine RBC 0 SEEN Urine WBC 0 SEEN Ur Squamous Epith Cells 0 SEEN Urine Bacteria 0 SEEN Urine Mucus 0 SEEN Radiography Diagnostic Testing: Clinical Impression(s) from Imaging Studies Abdomen/Pelvis CT 03/30/24 23:49 IMPRESSION: Cholelithiasis. 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 Electronically Signed: Elroy Cazares MD at 1:37 EDT , Management Discussion w/another healthcare provider: Hospitalist and Shellfish Weigher (GI friend - will consult if requested) Discharge Plan Dx/Rx/DC Orders Clinical Impression: Acquired hyperbilirubinemia, Acute hyponatremia, Cholelithiasis Disposition Disposition: Acute Care Hospital [facility]
[2024-03-31] VITALS (10 sets, daily range): BP systolic 112–139; BP diastolic 70–82; PULSE 65–78; RESP 14–20; TEMP 36.1–36.9; O2SAT 95–99; BMI 28.5
[2024-03-31] MEDS: 0.9% Normal Saline (1000mL) 1,000 ML 125 ML IV
[2024-03-31 00:08] LABS: Bacteria 0 SEEN /hpf (None Seen); Mucous, Urine 0 SEEN /hpf (<or=2+); Red Blood Cells-Urine 0 SEEN /hpf (0-5); Squamous Epithelial Cells - UA 0 SEEN /hpf (0-5); White Blood Cells 0 SEEN /hpf (0-5)
[2024-03-31 00:12] LABS: Color, Urine Yellow (Yellow); Glucose, Dipstick Normal (Normal); Ketone-Dipstick Negative (Negative); Leukocyte Esterase-Dipstick Negative /ul (Negative); Nitrite-Dipstick Negative (Negative); Occult Blood-Urine 25 /ul (Negative); Protein-Dipstick Negative (Negative); Urine Bilirubin Dipstick Negative (Negative); Urine Clarity Clear (Clear); Urine Urobilinogen Normal (Normal)
[2024-03-31 00:31] LABS: ALB/GLOB Ratio 1.4 RATIO (0.9-2.4); AST(SGOT) 36 U/L (15-37); Alanine Aminotransfer ALT/SGPT 26 U/L (16-61); Alkaline Phosphatase 56 U/L (45-117); Anion Gap 10 (5-15); BUN 15 mg/dL (7-18); BUN/Creat Ratio 17.3 RATIO (10-20); Calcium,Total 9.2 mg/dL (8.5-10.1); Chloride 83 mmol/L (98-107); Creatinine, Serum 0.87 mg/dL (0.70-1.30); EST Glomerular Filtration Rate 91 mL/min (>60); Est Glom Filt Rate - Afr Amer 110 mL/min (>60); Estimated Creatinine Clearance 80.82 ml/min; Globulin 2.8 g/dL (2.2-4.2); Glucose 140 mg/dL (74-106); Potassium 3.7 mmol/L (3.5-5.1); Protein, Total 6.8 g/dL (6.4-8.2); Sodium Level 119 mmol/L (136-145)
[2024-03-31 01:13] LABS: Absolute Neutrophil Count 5.3 X10^3/uL (2.0-7.7); Basophil# 0.02 X10^3/uL; Basophil% 0.3 % (0-1); Eosinophil# 0.09 X10^3/uL; Eosinophils% 1.2 % (0-5); Hematocrit 38.6 % (40-54); Hemoglobin 14.2 g/dL (13.0-16.5); Lymphocyte % 15.9 % (19-41); Mean Corp Hgb Conc 36.8 g/dL (32-36); Mean Corpuscular Hgb 30.7 pg (27.0-32.0); Mean Corpuscular Volume 83.4 fL (80-94); Monocyte# 0.92 X10^3/uL; Monocyte% 12.2 % (0-10); NRBC Flagged by Analyzer 0 % (0-5); Neutrophil # 5.32 X10^3/uL (2.7-7.7); Neutrophil % 70.1 % (47-70); Platelet Count 186 K/mm3 (150-450); RBC Distribution Width CV 13.2 % (11.6-14.6); RBC Distribution Width SD 40.1 fl (35.1-43.9); Red Blood Count 4.63 M/mm3 (4.6-6.2); White Blood Count 7.6 K/mm3 (4.4-11.0)
--- NOTE | 2024-03-31 02:29 | HP.PCM.HOS_ITS ---
[facility] - General General Date of Admission: 03/31/24 Date of Service: 03/31/24 Chief Complaint: Constipation and abdominal bloating. [facility] Narrative PILAR SMAANO, is a 78 M with a past medical history of essential hypertension, overweight; with BMI of 28.9 this admission, diabetes mellitus type 2; of unknown control, BPH s/p UroLift, depression, GERD and osteoarthritis; status post bilateral total knee replacements who presents to [facility] ER complaining of constipation and abdominal bloating. Mr. Patricio reports his symptoms began approximately 1 to 2 weeks prior to admission with intermittent constipation alternating with diarrhea which she was managing with MiraLAX and Metamucil with mixed results. He then noticed increasing abdominal bloating with hard stools and nausea but he denies vomiting. He admits that he has been drinking 8 to 16 ounces of water per hour over the last few days while he is struggle with constipation and then he noticed decreased urination so he decided to come in for further evaluation and treatment. He denies significant abdominal pain, fever, chills or blood in stools but he does admit to symptoms of maldigestion with frequent gas and bloating. He also states he has been using his MiraLAX as prescribed 1 capful per day for less than 1 week now. In the ER he was noted to have laboratory evidence of acute hyponatremia with a serum sodium of 119 mmol/L likely due to acute water intoxication in the process of treating constipation with incidentally noted mild hyperbilirubinemia of 1.8 mg/dL with a gallstone evident on CT scan this admission but with no evidence of acute pathologic changes and he was then admitted to the general medical floor for ongoing care for stay that is expected to extend beyond 2 midnights. [facility] Medical History Arthritis Bladder disease Bone fracture Cataracts, bilateral Diabetes Diabetes Dietary restriction Easy bruising Gastric reflux GERD (gastroesophageal reflux disease) Hearing problem High blood pressure History of pain when walking History of renal disease History of stress test Hoarseness Hx of sinus tachycardia Hypertension Indwelling urethral catheter present Non-smoker Prostate disorder Skin cancer Wears dentures Wears glasses Wears hearing aid Wears partial dentures Home Medications omeprazole 20 mg capsule,delayed release 20 mg PO QHS 11/22/17 [History Last Taken Unknown] metformin 500 mg tablet 500 mg PO DAILY 01/02/21 [History Last Taken Unknown] lisinopril 20 mg-hydrochlorothiazide 25 mg tablet 1 tab PO DAILY 03/31/24 [History Last Taken Unknown] sertraline 25 mg tablet 25 mg PO DAILY 03/31/24 [History Last Taken Unknown] Allergy/AdvReac Type Severity Reaction Status Date / Time hydrochlorothiazide AdvReac Other Verified 03/31/24 02:44 levofloxacin [From Levaquin] AdvReac Nausea Verified 03/30/24 22:46 Family History Other Arthritis Diabetes Hypertension Skin cancer Surgical History History of bilateral knee replacement History of prostate surgery Hx of hernia repair Hx of left cataract extraction Hx of nasal septoplasty Hx of right cataract extraction Social History Smoking Status: Never smoker alcohol intake: never substance use type: does not use additional social history: Does take aspirin Does take Ibuprofen as needed ROS ROS Narrative Review of systems: General: Patient denies fever or chills. HENT: Denies headache, denies stuffy nose, denies sore throat EYES: Denies changes in vision or discharge from eyes. Resp: Denies cough, denies shortness of breath Cardiac: Denies chest pain, palpitations or heart racing. GI: Patient admits to constipation refractory to treatment with MiraLAX and abdominal bloating with nausea as per HPI. : Patient admits to decreased urination which prompted his ER visit as per HPI. Extremity: Denies swelling Musculoskeletal: Feels somewhat generally weak and unwell but he denies arthralgias or myalgias. Neuro: Patient denies headache, paresthesias or focal neurologic deficits. Heme: Denies any bleeding or bruising Skin: Denies rashes Psychiatric: No complaints voiced related to uncontrolled depression or anxiety. Endocrine: No polyuria, polydipsia or polyphagia. The rest of the 14 point ROS was negative except for positives in HPI. Vital Signs Vital Signs Vital Signs: 03/30/24 22:44 03/31/24 00:44 Temperature 97.4 F L 97.9 F Temperature Source Temporal Oral Pulse Rate 93 75 Respiratory Rate 16 20 H Blood Pressure 137/99 H Blood Pressure Mean 111 Pulse Ox 97 95 Oxygen Delivery Method Room Air Room Air Weight Weight: 201 lb 8 oz Body Mass Index (BMI) 28.9 Physical Exam Const alert, oriented x3, no apparent distress, average body habitus and healthy appearing General Appearance: cooperative HEENT normocephalic, head/scalp atraumatic and hearing grossly normal bilaterally HEENT Narrative: Mucous membranes dry. Eyes PERRL and EOMs intact bilaterally Neck no lymphadenopathy and supple Resp normal respiratory effort, no retractions, no use of accessory muscles and clear to auscultation bilaterally Cardio regular rate and regular rhythm GI normal to inspection, nondistended, normoactive bowel sounds, soft to palpation and non-tender GI Narrative: Mild distention noted. Extremity normal to inspection, full ROM and no clubbing, cyanosis or edema Skin Skin Narrative: Patient has no evidence of jaundice or rash. Neuro oriented x3, CN's II-XII intact bilaterally, moves all extremities and no focal motor deficits Sensorium / Orientation: awake, alert, oriented to person, oriented to place and oriented to time Speech: speech normal Psych affect normal Results Medical Records Data Attestation: I reviewed the patient's medical records Lab / Micro Data Attestation: I reviewed the patient's lab results. 03/31/24 00:03 03/31/24 00:03 Labs: Laboratory Results - last 24 hr 03/31/24 00:03: WBC 7.6, RBC 4.63, Hgb 14.2, Hct 38.6 L, MCV 83.4, MCH 30.7, MCHC 36.8 H, RDW Std Deviation 40.1, RDW Coeff of Minnie 13.2, Plt Count 186, MPV 11.0, Immature Gran % (Auto) 0.300, Neut % (Auto) 70.1 H, Lymph % (Auto) 15.9 L, [place] % (Auto) 12.2 H, Eos % (Auto) 1.2, Baso % (Auto) 0.3, Absolute Neuts (auto) 5.3, Absolute Lymphs (auto) 1.20, Nucleated RBC % 0, Sodium 119 L*, Potassium 3.7, Chloride 83 L, Carbon Dioxide 26.0, Anion Gap 10, BUN 15, Creatinine 0.87, Estim Creat Clear Calc 80.82, Est GFR (MDRD) Af Amer 110, Est GFR (MDRD) Non-Af 91, BUN/Creatinine Ratio 17.3, Glucose 140 H, Calcium 9.2, Total Bilirubin 1.80 H, AST 36, ALT 26, Alkaline Phosphatase 56, Total Protein 6.8, Albumin 4.0, Kiersten bulin 2.8, Albumin/Globulin Ratio 1.4, Urine Color Yellow, Urine Clarity Clear, Urine pH 7.0, Ur Specific [place] 1.010, Urine Protein Negative, Urine Glucose (UA) Normal, Urine Ketones Negative, Urine Occult Blood 25 H, Urine Nitrite Negative, Urine Bilirubin Negative, Urine Urobilinogen Normal, Ur Leukocyte Esterase Negative, Urine RBC 0 SEEN, Urine WBC 0 SEEN, Ur Squamous Epith Cells 0 SEEN, Urine Bacteria 0 SEEN, Urine Mucus 0 SEEN Imaging Radiology Impression Abdomen/Pelvis CT 03/30/24 23:49 IMPRESSION: Cholelithiasis. 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 Electronically Signed: Elroy Cazares MD at 1:37 EDT , Assessment & Plan Assessment/Plan (1) Acute hyponatremia: (2) Water intoxication: (3) Cholelithiasis: QUALIFIERS: Biliary obstruction: without biliary obstruction Cholecystitis presence: without cholecystitis Cholelithiasis location: gallbladder Qualified Code(s): K80.20 - Calculus of gallbladder without cholecystitis without obstruction (4) Acquired hyperbilirubinemia: (5) Constipation: QUALIFIERS: Constipation type: unspecified constipation type Qualified Code(s): K59.00 - Constipation, unspecified PLAN: Plan 1. Acute hyponatremia evidenced by serum sodium of 119 mmol/L present on admission - Admit to general medical floor. Continue normal saline IV fluids and check BMP every ~6 hours to make sure sodium does not rise more than 8 to 10 mmol/L per 24 hours. Check serum osmolality and urine osmolality. 2. Acute water intoxication with possible adverse drug reaction to HCTZ causing #1 - Add HCTZ to his list of allergies. Patient was instructed to drink no more than ~1.5 L of free water daily to prevent serial readmission. 3. Acute constipation refractory to treatment with MiraLAX with abdominal bloating and nausea complicating #1 & #2 - Give lactulose to stimulate BM and then reevaluate with the patient showing signs of bowel obsession. 4. Mild hyperbilirubinemia of 1.8 mg/dL present on admission with gallstone evident on CT but with no out acute pathologic changes otherwise adding to the pathology of #1 - #3 - Check MRCP to evaluate for evidence of possible early cholecystitis. Check CMP daily to follow trend. 5. DM-2; of unknown control - Keep n.p.o. for now and hold metformin. Fingers tick blood sugars every 6 hours plus lowest intensity sliding scale insulin. Check hemoglobin A1c to objectively evaluate quality of diabetic control. 6. Essential hypertension; on lisinopril/HCTZ - Continue lisinopril as previous but stop HCTZ. Patient's phone karla shows he is only on lisinopril without HCTZ but his pharmacy will need to be called in the a.m. to ensure accuracy. 7. Overweight; with BMI of 28.9 this admission - Weight loss will be recommended. 8. BPH s/p UroLift - Noted. 9. GERD - Resume PPI. 10. OA; s/p bilateral total knee replacements - Noted. Give Tylenol as needed. 11. Depression - Continue sertraline as previous. 12. DVT prophylaxis - Lovenox 40 mg sq daily. Total time: Approximately 75 minutes. Charges/Coding Visit Charges [facility]
--- NOTE | 2024-03-31 02:56 | MRI_ITS ---
EXAM: MR ABDOMEN WITHOUT INTRAVENOUS CONTRAST, MRCP PROTOCOL CLINICAL INDICATION: Hyperbilirubinemia with cholelithiasis on CT. TECHNIQUE: Multiplanar and multisequence MR images of the abdomen without intravenous contrast obtained with MRCP sequence. Three-dimensional post-processing reconstructions were performed. COMPARISON: CT abdomen and pelvis 03/31/2024 FINDINGS: LOWER THORAX: Normal. No pleural effusion. LIVER: Normal. Normal morphology. GALLBLADDER AND BILE DUCTS: 16 mm gallstone again noted. No gallbladder distention or wall edema. No intra- or extrahepatic biliary ductal dilation. No choledochal filling defect. PANCREAS: Normal. No focal cystic mass. No pancreatic duct dilation. SPLEEN: Normal. Non-enlarged. ADRENALS: 2.2 cm left adrenal nodule. Recommend follow-up correlation with hormone levels if clinically warranted. KIDNEYS AND URETERS: Normal. Normal renal size and position. No hydronephrosis. INTRAPERITONEAL SPACE: Normal. No ascites or other fluid collection. VASCULATURE: Normal. Abdominal aorta is non-dilated. LYMPH NODES: No enlarged lymph nodes. MRI/MRCP Abdomen without Contrast IMPRESSION: 1. Solitary 16 mm gallstone. 2. Normal biliary tree. Electronically Signed: Marc Gallegos MD at 11:33 EDT ,
[2024-03-31 04:18] LABS: Osmolality, Serum 254 mOsm/KG (280-301)
[2024-03-31 04:18] LABS: Osmolality, Urine 228 mOsm/KG
[2024-03-31 04:23] LABS: Lipase 65 U/L (13-75)
[2024-03-31] MEDS: 0.9% Normal Saline (1000mL) 1,000 ML 70 ML IV ×2 (04:55→22:17)
[2024-03-31] MEDS: Lactulose 20 GM/30 ML UDC 30 GM PO (05:10)
[2024-03-31] MEDS: Ondansetron 4 MG/2 ML Vial IV ×2 (06:34)
[2024-03-31 06:50] LABS: Bedside Glucose 148 mg/dL (74-106)
[2024-03-31 08:16] LABS: Hemoglobin A1c 6.3 % (3.8-5.6)
[2024-03-31 08:37] LABS: Absolute Lymphocyte Count 0.84 X10^3/uL (0.83-4.51); Absolute Neutrophil Count 4.9 X10^3/uL (2.0-7.7); Basophil# 0.02 X10^3/uL; Basophil% 0.3 % (0-1); Eosinophil# 0.04 X10^3/uL; Eosinophils% 0.6 % (0-5); Hematocrit 38.2 % (40-54); Lymphocyte # 0.84 X10^3/ul (0.83-4.51); Lymphocyte % 12.9 % (19-41); Mean Corp Hgb Conc 36.6 g/dL (32-36); Mean Corpuscular Hgb 30.8 pg (27.0-32.0); Mean Corpuscular Volume 84.1 fL (80-94); Mean Platelet Vol. 10.7 fl (6.2-12.0); Monocyte# 0.71 X10^3/uL; Monocyte% 10.9 % (0-10); NRBC Flagged by Analyzer 0 % (0-5); Neutrophil # 4.89 X10^3/uL (2.7-7.7); Neutrophil % 74.8 % (47-70); Platelet Count 187 K/mm3 (150-450); RBC Distribution Width CV 13.2 % (11.6-14.6); RBC Distribution Width SD 40.7 fl (35.1-43.9); Red Blood Count 4.54 M/mm3 (4.6-6.2); White Blood Count 6.5 K/mm3 (4.4-11.0)
[2024-03-31 08:52] LABS: ALB/GLOB Ratio 1.3 RATIO (0.9-2.4); AST(SGOT) 36 U/L (15-37); Alanine Aminotransfer ALT/SGPT 26 U/L (16-61); Albumin, Serum 3.8 g/dL (3.2-5.0); Alkaline Phosphatase 53 U/L (45-117); Anion Gap 9 (5-15); BUN 12 mg/dL (7-18); BUN/Creat Ratio 15.7 RATIO (10-20); Calcium,Total 8.7 mg/dL (8.5-10.1); Chloride 88 mmol/L (98-107); Creatinine, Serum 0.76 mg/dL (0.70-1.30); EST Glomerular Filtration Rate 105 mL/min (>60); Est Glom Filt Rate - Afr Amer 127 mL/min (>60); Estimated Creatinine Clearance 87.33 ml/min; Glucose 147 mg/dL (74-106); Magnesium 1.7 mg/dL (1.6-2.6); Potassium 3.4 mmol/L (3.5-5.1); Protein, Total 6.8 g/dL (6.4-8.2); Sodium Level 121 mmol/L (136-145)
--- NOTE | 2024-03-31 08:52 | PCM.PN.HOSP ---
Reason for Visit Reason for Visit: Diagnoses Other disorders of bilirubin metabolism (03/31/24) Hypo-osmolality and hyponatremia (03/31/24) Other fluid overload (03/31/24) Constipation, unspecified (03/31/24) Calculus of gallbladder without cholecystitis without obstruction (03/31/24) Subjective Subjective Had BM today. Abdomen feeling better. Objective Data Objective Data Vital Signs: Vital Signs Temp Pulse Resp BP Pulse Ox O2 Del Method 36.9 C 77 16 132/75 H 97 Room Air 03/31/24 08:00 03/31/24 08:00 03/31/24 08:00 03/31/24 08:00 03/31/24 08:00 03/31/24 08:00 Oxygen Delivery Method Room Air Weight: 90.1 kg Body Mass Index (BMI) 28.5 Intake & Output: Intake and Output for Last 24 Hours 03/29/24 03/30/24 03/31/24 23:59 23:59 23:59 Intake Total 647.92 / 647.92 Output Total 575 / 575 Balance 72.92 / 72.92 Lab / Micro Data 03/31/24 07:40 03/31/24 12:37 Labs: Laboratory Results - last 24 hr 03/31/24 00:03: WBC 7.6, RBC 4.63, Hgb 14.2, Hct 38.6 L, MCV 83.4, MCH 30.7, MCHC 36.8 H, RDW Std Deviation 40.1, RDW Coeff of Minnie 13.2, Plt Count 186, MPV 11.0, Immature Gran % (Auto) 0.300, Neut % (Auto) 70.1 H, Lymph % (Auto) 15.9 L, [place] % (Auto) 12.2 H, Eos % (Auto) 1.2, Baso % (Auto) 0.3, Absolute Neuts (auto) 5.3, Absolute Lymphs (auto) 1.20, Nucleated RBC % 0, Sodium 119 L*, Potassium 3.7, Chloride 83 L, Carbon Dioxide 26.0, Anion Gap 10, BUN 15, Creatinine 0.87, Estim Creat Clear Calc 80.82, Est GFR (MDRD) Af Amer 110, Est GFR (MDRD) Non-Af 91, BUN/Creatinine Ratio 17.3, Glucose 140 H, Calcium 9.2, Total Bilirubin 1.80 H, AST 36, ALT 26, Alkaline Phosphatase 56, Total Protein 6.8, Albumin 4.0, Globulin 2.8, Albumin/Globulin Ratio 1.4, Lipase 65, Urine Color Yellow, Urine Clarity Clear, Urine pH 7.0, Ur Specific [place] 1.010, Urine Protein Negative, Urine Glucose (UA) Normal, Urine Ketones Negative, Urine Occult Blood 25 H, Urine Nitrite Negative, Urine Bilirubin Negative, Urine Urobilinogen Normal, Ur Leukocyte Esterase Negative, Urine RBC 0 SEEN, Urine WBC 0 SEEN, Ur Squamous Epith Cells 0 SEEN, Urine Bacteria 0 SEEN, Urine Mucus 0 SEEN, Urine Osmolality 228 03/31/24 00:07: Hemoglobin A1c 6.3 H 03/31/24 03:27: Serum Osmolality 254 L 03/31/24 06:27: POC Glucose 148 H 03/31/24 07:40: WBC 6.5, RBC 4.54 L, Hgb 14.0, Hct 38.2 L, MCV 84.1, MCH 30.8, MCHC 36.6 H, RDW Std Deviation 40.7, RDW Coeff of Minnie 13.2, Plt Count 187, MPV 10.7, Immature Gran % (Auto) 0.500, Neut % (Auto) 74.8 H, Lymph % (Auto) 12.9 L, [place] % (Auto) 10.9 H, Eos % (Auto) 0.6, Baso % (Auto) 0.3, Absolute Neuts (auto) 4.9, Absolute Lymphs (auto) 0.84, Nucleated RBC % 0 Radiography Diagnostic Testing: Radiology Impression Abdomen/Pelvis CT 03/30/24 23:49 IMPRESSION: Cholelithiasis. 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 Electronically Signed: Elroy Cazares MD at 1:37 EDT , Physical Exam Const alert and no apparent distress HEENT head/scalp atraumatic Resp normal respiratory effort and no retractions Cardio regular rate, regular rhythm, S1 normal heart sound and S2 normal heart sound GI normal to inspection, nondistended, normoactive bowel sounds and soft to palpation Neuro Sensorium / Orientation: awake and alert Assessment & Plan Assessment/Plan (1) Acute hyponatremia: (2) Water intoxication: (3) Cholelithiasis: QUALIFIERS: Biliary obstruction: without biliary obstruction Cholecystitis presence: without cholecystitis Cholelithiasis location: gallbladder Qualified Code(s): K80.20 - Calculus of gallbladder without cholecystitis without obstruction (4) Acquired hyperbilirubinemia: (5) Constipation: QUALIFIERS: Constipation type: unspecified constipation type Qualified Code(s): K59.00 - Constipation, unspecified PLAN: Plan Acute hyponatremia suspect due to HCTZ and dilutional from too much water. monitor Acute constipation resolved with a dose of lactulose Patient describes that he took Metamucil and that had diarrhea for about a day and a half and then did not have a bowel movement for about 3 days and then switched over to MiraLAX as he felt that was a failure and then positive results with the MiraLAX and then did not have bowel movements for few days. Not sure that this was not actually a failure of the Metamucil or the MiraLAX. Recommend the patient take MiraLAX daily and as needed Dulcolax. Mild hyperbilirubinemia MRCP ordered. Patient had 16mm gallstone but normal biliary tree. No additional workup less patient comes symptomatic. CHronic conditions: DM-2; fair control. of unknown control - Keep n.p.o. for now and hold metformin. Fingerstick blood sugars every 6 hours plus lowest intensity sliding scale insulin. Check hemoglobin A1c to objectively evaluate quality of diabetic control. Essential hypertension; on lisinopril/HCTZ - Continue lisinopril as previous but stop HCTZ. Overweight; with BMI of 28.9 this admission - Weight loss will be recommended. BPH s/p UroLift GERD - Resume PPI. OA; s/p bilateral total knee replacements - Noted. Give Tylenol as needed. Depression - Continue sertraline DVT prophylaxis - Lovenox 40 mg sq daily. Charges/Coding Visit Charges Inpatient E&M: 73077 Subs Hosp L2
[2024-03-31] MEDS: ALPRAZolam 0.5 MG Tablet PO (08:57)
--- NOTE | 2024-03-31 09:18 | NURSING ---
Pt medicated w/ Xanax for anxiousness prior to MRCP, Patient to leave floor within 15 mins for procedure.
[2024-03-31 09:26] LABS: Anion Gap 9 (5-15); BUN 11 mg/dL (7-18); BUN/Creat Ratio 13.7 RATIO (10-20); Calcium,Total 8.7 mg/dL (8.5-10.1); Chloride 87 mmol/L (98-107); EST Glomerular Filtration Rate 99 mL/min (>60); Est Glom Filt Rate - Afr Amer 119 mL/min (>60); Estimated Creatinine Clearance 87.33 ml/min; Glucose 145 mg/dL (74-106); Potassium 3.6 mmol/L (3.5-5.1); Sodium Level 121 mmol/L (136-145)
[2024-03-31 11:51] LABS: Bedside Glucose 137 mg/dL (74-106)
[2024-03-31] MEDS: Lisinopril 20 MG Tablet PO (11:56)
[2024-03-31] MEDS: Sertraline 50 MG Tablet 25 MG PO (11:56)
[2024-03-31] MEDS: Enoxaparin 40 MG/0.4 ML Syringe SC (11:56)
--- NOTE | 2024-03-31 12:40 | CASEMGMT ---
AMARJIT COLBERT Assessment Face to Face with patient for initial transition planning/care coordination assessment. RN CM introduced self and role at [facility], pt voices understanding. Pt is A&Ox4 and is resting comfortably in bed and is calm. Pt at bedside. Care providers, pharmacy, and demographics verified. Admitting dx: Hyponatremia PCP: Pio Amaya Specialists: Chapito (Ortho), Lionel (Uro) Preferred Pharmacy: [facility] Insurance: [facility] A/B Prescription Benefit: Yes - through [employer] [facility] Living Arrangements: Pt lives with his in a single story home with a BM with 3 steps to enter ADLs/IADLs: Ind Transportation: Self, pt DME: Pt states that they have a working BGM and supplies at home. Cane. BP Cuff. Pulse Ox. Walk in shower. HHC/SNF: States HHC several years ago out of [place]. Denies SNF history Pt?s goal: Home Plan: 6-Click is 22. PT eval is pending. Pt denies the need for HHC or OP therapy and states that he feels safe at home. Pt denies further concerns. CM to follow for safe DC from [facility]. Franck Bowers RN, CM
[2024-03-31 13:05] LABS: Anion Gap 6 (5-15); BUN 11 mg/dL (7-18); BUN/Creat Ratio 12.7 RATIO (10-20); Calcium,Total 9.1 mg/dL (8.5-10.1); Chloride 88 mmol/L (98-107); Creatinine, Serum 0.87 mg/dL (0.70-1.30); EST Glomerular Filtration Rate 91 mL/min (>60); Est Glom Filt Rate - Afr Amer 110 mL/min (>60); Glucose 116 mg/dL (74-106); Potassium 3.7 mmol/L (3.5-5.1); Sodium Level 122 mmol/L (136-145)
[2024-03-31 17:09] LABS: Anion Gap 8 (5-15); BUN 12 mg/dL (7-18); BUN/Creat Ratio 14.9 RATIO (10-20); Calcium,Total 8.7 mg/dL (8.5-10.1); Chloride 88 mmol/L (98-107); EST Glomerular Filtration Rate 99 mL/min (>60); Est Glom Filt Rate - Afr Amer 120 mL/min (>60); Estimated Creatinine Clearance 87.33 ml/min; Glucose 126 mg/dL (74-106); Potassium 3.5 mmol/L (3.5-5.1); Sodium Level 122 mmol/L (136-145)
[2024-03-31 17:25] LABS: Bedside Glucose 125 mg/dL (74-106)
[2024-03-31 21:28] LABS: Anion Gap 10 (5-15); BUN 21 mg/dL (7-18); Calcium,Total 8.7 mg/dL (8.5-10.1); Chloride 89 mmol/L (98-107); Creatinine, Serum 0.92 mg/dL (0.70-1.30); EST Glomerular Filtration Rate 85 mL/min (>60); Est Glom Filt Rate - Afr Amer 103 mL/min (>60); Estimated Creatinine Clearance 75.93 ml/min; Glucose 167 mg/dL (74-106); Potassium 3.5 mmol/L (3.5-5.1); Sodium Level 124 mmol/L (136-145)
[2024-03-31] MEDS: Pantoprazole Sodium 20 MG Tablet PO (22:17)
[2024-03-31 22:45] LABS: Bedside Glucose 133 mg/dL (74-106)
[2024-04-01 00:53] LABS: Anion Gap 7 (5-15); BUN 19 mg/dL (7-18); BUN/Creat Ratio 20.4 RATIO (10-20); Calcium,Total 9.1 mg/dL (8.5-10.1); Chloride 90 mmol/L (98-107); Creatinine, Serum 0.93 mg/dL (0.70-1.30); EST Glomerular Filtration Rate 84 mL/min (>60); Est Glom Filt Rate - Afr Amer 101 mL/min (>60); Estimated Creatinine Clearance 75.12 ml/min; Glucose 145 mg/dL (74-106); Potassium 3.8 mmol/L (3.5-5.1); Sodium Level 125 mmol/L (136-145)
[2024-04-01 04:00] VITALS: BP 106/67; PULSE 78; RESP 18; TEMP 36.7; O2SAT 98
[2024-04-01 07:03] LABS: Bedside Glucose 123 mg/dL (74-106)
--- NOTE | 2024-04-01 09:16 | PN.HOSP_ITS ---
Reason for Visit Reason for Visit: Diagnoses Other disorders of bilirubin metabolism (03/31/24) Hypo-osmolality and hyponatremia (03/31/24) Other fluid overload (03/31/24) Constipation, unspecified (03/31/24) Calculus of gallbladder without cholecystitis without obstruction (03/31/24) Subjective Subjective Feels well. Objective Data Objective Data Vital Signs: Vital Signs Temp Pulse Resp BP Pulse Ox O2 Del Method 36.7 C 78 18 106/67 98 Room Air 04/01/24 04:00 04/01/24 04:00 04/01/24 04:00 04/01/24 04:00 04/01/24 04:00 04/01/24 04:00 Oxygen Delivery Method Room Air Weight: 90.1 kg Body Mass Index (BMI) 28.5 Intake & Output: Intake and Output for Last 24 Hours 03/30/24 03/31/24 04/01/24 23:59 23:59 23:59 Intake Total 2127.92 / 2347.92 340 / 340 Output Total 575 / 575 Balance 1552.92 / 1772.92 340 / 340 Lab / Micro Data 03/31/24 07:40 04/01/24 07:35 Labs: Laboratory Results - last 24 hr 03/31/24 07:40: Phosphorus 3.0 03/31/24 08:23: Sodium 121 L, Potassium 3.6, Chloride 87 L, Carbon Dioxide 25.0, Anion Gap 9, BUN 11, Creatinine 0.80, Estim Creat Clear Calc 87.33, Est GFR (MDRD) Af Amer 119, Est GFR (MDRD) Non-Af 99, BUN/Creatinine Ratio 13.7, Glucose 145 H, Calcium 8.7 03/31/24 11:28: POC Glucose 137 H 03/31/24 12:37: Sodium 122 L, Potassium 3.7, Chloride 88 L, Carbon Dioxide 28.0, Anion Gap 6, BUN 11, Creatinine 0.87, Estim Creat Clear Calc 80.30, Est GFR (MDRD) Af Amer 110, Est GFR (MDRD) Non-Af 91, BUN/Creatinine Ratio 12.7, Glucose 116 H, Calcium 9.1 03/31/24 16:24: Sodium 122 L, Potassium 3.5, Chloride 88 L, Carbon Dioxide 26.0, Anion Gap 8, BUN 12, Creatinine 0.80, Estim Creat Clear Calc 87.33, Est GFR (MDRD) Af Amer 120, Est GFR (MDRD) Non-Af 99, BUN/Creatinine Ratio 14.9, Glucose 126 H, Calcium 8.7 03/31/24 17:06: POC Glucose 125 H 03/31/24 20:42: Sodium 124 L, Potassium 3.5, Chloride 89 L, Carbon Dioxide 25.0, Anion Gap 10, BUN 21 H, Creatinine 0.92, Estim Creat Clear Calc 75.93, Est GFR (MDRD) Af Amer 103, Est GFR (MDRD) Non-Af 85, BUN/Creatinine Ratio 23.0 H, Glucose 167 H, Calcium 8.7 03/31/24 22:24: POC Glucose 133 H 04/01/24 00:14: Sodium 125 L, Potassium 3.8, Chloride 90 L, Carbon Dioxide 28.0, Anion Gap 7, BUN 19 H, Creatinine 0.93, Estim Creat Clear Calc 75.12, Est GFR (MDRD) Af Amer 101, Est GFR (MDRD) Non-Af 84, BUN/Creatinine Ratio 20.4 H, Glucose 145 H, Calcium 9.1 04/01/24 06:46: POC Glucose 123 H Radiography Diagnostic Testing: Radiology Impression MRCP 03/31/24 02:56 IMPRESSION: 1. Solitary 16 mm gallstone. 2. Normal biliary tree. Electronically Signed: Marc Gallegos MD at 11:33 EDT Reading Location ID and State: [facility] / [place] Tel , Service support , Physical Exam Const alert and no apparent distress Constitutional Narrative: [place], improved after placing in hearing aides. Neuro Sensorium / Orientation: awake and alert Assessment & Plan Assessment/Plan (1) Acute hyponatremia: (2) Water intoxication: (3) Acquired hyperbilirubinemia: (4) Constipation: QUALIFIERS: Constipation type: unspecified constipation type Qualified Code(s): K59.00 - Constipation, unspecified PLAN: Plan Acute hyponatremia * improved * suspect due to HCTZ and dilutional from too much water. * monitor Acute constipation * resolved with a dose of lactulose * Patient describes that he took Metamucil and that had diarrhea for about a day and a half and then did not have a bowel movement for about 3 days and then switched over to MiraLAX as he felt that was a failure and then positive results with the MiraLAX and then did not have bowel movements for few days. Not sure that this was not actually a failure of the Metamucil or the MiraLAX. Recommend the patient take MiraLAX daily and as needed Dulcolax. * Miralax daily. Dulcolax PRN. Mild hyperbilirubinemia * MRCP ordered. Patient had 16mm gallstone but normal biliary tree. * No additional workup less patient comes symptomatic. CHronic conditions: * DM-2; fair control. of unknown control - Keep n.p.o. for now and hold metformin. Fingerstick blood sugars every 6 hours plus lowest intensity sliding scale insulin. Check hemoglobin A1c to objectively evaluate quality of diabetic control. * Essential hypertension; on lisinopril/HCTZ - Continue lisinopril as previous but stop HCTZ. * Overweight; with BMI of 28.9 this admission - Weight loss will be recommended. * BPH s/p UroLift * GERD - Resume PPI. * OA; s/p bilateral total knee replacements - Noted. Give Tylenol as needed. * Depression - Continue sertraline DVT prophylaxis - Lovenox 40 mg sq daily.
[2024-04-01] MEDS: Enoxaparin 40 MG/0.4 ML Syringe SC (09:29)
[2024-04-01] MEDS: Sertraline 50 MG Tablet 25 MG PO (09:29)
[2024-04-01 09:30] LABS: ALB/GLOB Ratio 1.3 RATIO (0.9-2.4); AST(SGOT) 25 U/L (15-37); Alanine Aminotransfer ALT/SGPT 24 U/L (16-61); Albumin, Serum 3.6 g/dL (3.2-5.0); Alkaline Phosphatase 47 U/L (45-117); Anion Gap 8 (5-15); BUN 15 mg/dL (7-18); BUN/Creat Ratio 18.7 RATIO (10-20); Calcium,Total 8.3 mg/dL (8.5-10.1); Chloride 92 mmol/L (98-107); EST Glomerular Filtration Rate 99 mL/min (>60); Est Glom Filt Rate - Afr Amer 120 mL/min (>60); Estimated Creatinine Clearance 87.33 ml/min; Globulin 2.7 g/dL (2.2-4.2); Glucose 126 mg/dL (74-106); Potassium 3.6 mmol/L (3.5-5.1); Protein, Total 6.3 g/dL (6.4-8.2); Sodium Level 125 mmol/L (136-145)
[2024-04-01] MEDS: Lisinopril 20 MG Tablet PO (09:30)
[2024-04-01 09:42] VITALS: BP 137/77; PULSE 94; RESP 18; TEMP 36.4; O2SAT 97
[2024-04-01] MEDS: 0.9% Normal Saline (1000mL) 1,000 ML 70 ML IV (10:58)
[2024-04-01 11:46] LABS: Bedside Glucose 182 mg/dL (74-106)
[2024-04-01] MEDS: Insulin Lispro 100 UNIT/ML INSULN.PEN SC (11:59)
--- NOTE | 2024-04-01 14:42 | DS.PCM_ITS ---
Providers Date of Admission: 03/31/24 Primary Care Physician: Dr. Pio Amaya MD Reason For Visit: HYPONATREMIA LIKELY DUE TO ADVERSE DRUG REACTION Diagnosis Discharge Diagnosis (1) Acute hyponatremia: Status: Acute Code(s): E87.1 - Hypo-osmolality and hyponatremia (2) Water intoxication: Status: Acute Code(s): E87.79 - Other fluid overload (3) Acquired hyperbilirubinemia: Status: Acute Code(s): E80.6 - Other disorders of bilirubin metabolism (4) Constipation: Status: Acute Code(s): K59.00 - Constipation, unspecified Qualifiers: Constipation type: unspecified constipation type Qualified Code(s): K59.00 - Constipation, unspecified Plan Acute hyponatremia * improved * suspect due to HCTZ and dilutional from too much water. * monitor Acute constipation * resolved with a dose of lactulose * Patient describes that he took Metamucil and that had diarrhea for about a day and a half and then did not have a bowel movement for about 3 days and then switched over to MiraLAX as he felt that was a failure and then positive results with the MiraLAX and then did not have bowel movements for few days. Not sure that this was not actually a failure of the Metamucil or the MiraLAX. Recommend the patient take MiraLAX daily and as needed Dulcolax. * Miralax daily. Dulcolax PRN. Mild hyperbilirubinemia * MRCP ordered. Patient had 16mm gallstone but normal biliary tree. * No additional workup less patient comes symptomatic. CHronic conditions: * DM-2; fair control. of unknown control - Keep n.p.o. for now and hold metformin. Fingerstick blood sugars every 6 hours plus lowest intensity sliding scale insulin. Check hemoglobin A1c to objectively evaluate quality of diabetic control. * Essential hypertension; on lisinopril/HCTZ - Continue lisinopril as previous but stop HCTZ. * Overweight; with BMI of 28.9 this admission - Weight loss will be recommended. * BPH s/p UroLift * GERD - Resume PPI. * OA; s/p bilateral total knee replacements - Noted. Give Tylenol as needed. * Depression - Continue sertraline DVT prophylaxis - Lovenox 40 mg sq daily. Medications at Discharge Home Medications omeprazole 20 mg capsule,delayed release 20 mg PO QHS 11/22/17 metformin 500 mg tablet 500 mg PO DAILY 01/02/21 sertraline 25 mg tablet 25 mg PO DAILY 03/31/24 bisacodyl 5 mg tablet,delayed release (Dulcolax (bisacodyl)) 5 mg PO DAILY PRN constipation 2 days #2 tabs 04/01/24 lisinopril 20 mg tablet 20 mg PO DAILY #30 tabs 04/01/24 polyethylene glycol 3350 17 gram/dose oral powder (ClearLax) 17 g PO DAILY #119 grams 04/01/24 Hospital Course Operations None Procedures None Summary of Care Provided Minutes Spent on Discharge: 32 Weight / BMI Weight Weight: 90.1 kg Body Mass Index (BMI) 28.5 ABG / Lab / Microbiology Data 03/31/24 07:40 04/01/24 07:35 Laboratory: Laboratory Results - last 24 hr 03/31/24 16:24: Sodium 122 L, Potassium 3.5, Chloride 88 L, Carbon Dioxide 26.0, Anion Gap 8, BUN 12, Creatinine 0.80, Estim Creat Clear Calc 87.33, Est GFR (MDRD) Af Amer 120, Est GFR (MDRD) Non-Af 99, BUN/Creatinine Ratio 14.9, Glucose 126 H, Calcium 8.7 03/31/24 17:06: POC Glucose 125 H 03/31/24 20:42: Sodium 124 L, Potassium 3.5, Chloride 89 L, Carbon Dioxide 25.0, Anion Gap 10, BUN 21 H, Creatinine 0.92, Estim Creat Clear Calc 75.93, Est GFR (MDRD) Af Amer 103, Est GFR (MDRD) Non-Af 85, BUN/Creatinine Ratio 23.0 H, Glucose 167 H, Calcium 8.7 03/31/24 22:24: POC Glucose 133 H 04/01/24 00:14: Sodium 125 L, Potassium 3.8, Chloride 90 L, Carbon Dioxide 28.0, Anion Gap 7, BUN 19 H, Creatinine 0.93, Estim Creat Clear Calc 75.12, Est GFR (MDRD) Af Amer 101, Est GFR (MDRD) Non-Af 84, BUN/Creatinine Ratio 20.4 H, Glucose 145 H, Calcium 9.1 04/01/24 06:46: POC Glucose 123 H 04/01/24 07:35: Sodium 125 L, Potassium 3.6, Chloride 92 L, Carbon Dioxide 25.0, Anion Gap 8, BUN 15, Creatinine 0.80, Estim Creat Clear Calc 87.33, Est GFR ( RD) Af Amer 120, Est GFR (MDRD) Non-Af 99, BUN/Creatinine Ratio 18.7, Glucose 126 H, Calcium 8.3 L, Total Bilirubin 1.50 H, AST 25, ALT 24, Alkaline Phosphatase 47, Total Protein 6.3 L, Albumin 3.6, Globulin 2.7, Albumin/Globulin Ratio 1.3 04/01/24 11:21: POC Glucose 182 H D/C Instructions Discharge Diet: 2000 Calorie Control Diet Meaningful Use Info Meaningful Use Meaningful Use Diagnoses (Choose all that apply): None applicable Ischemic Stroke Statin Dosing Therapy Reference: STATIN DOSE THERAPY REFERENCE: * Patients > 75 years receive moderate or high dose statin therapy. * Patients 75 years or YOUNGER should receive HIGH intensity statin dose unless contraindicated. You will be required to document reason for non-treatment if statin daily dose does not meet guidelines. HIGH DOSE STATIN THERAPY DAILY Atorvastatin > than or = to 40 mg Rosuvastatin > than or = to 20 mg Amlodipine + Atorvastatin > than or = to 2.5/40 mg Ezetimibe + Simvastatin 10/80 mg Simvastatin 80mg Discharge Plan Admission Admit Date/Time: 03/31/24 02:50 Primary Reason for Your Visit: hyponatremia. Attending Provider: Bhavesh Baker Primary Care Provider: Pio Amaya Consulting Providers: Clinton Spain Instructions Additional Instructions / Restrictions: Your sodium was very low in the hospital. This likely due to with your medications which was part of the lisinopril that you are taking called hydrochlorothiazide. That has been stopped and instead you will be just taking lisinopril without the hydrochlorothiazide. Been having issues with constipation. Do recommend that you take MiraLAX daily. If you are still having constipation despite that, he can take a Dulcolax tablet daily as needed. Discharge Orders/Prescriptions Prescriptions: New lisinopril 20 mg Tablet 20 mg PO DAILY Qty: 30 0RF polyethylene glycol 3350 [ClearLax] 17 gram/dose powder 17 g PO DAILY Qty: 119 0RF Rx Instructions: daily. Hold for loose stools/diarrhea. bisacodyl [Dulcolax (bisacodyl)] 5 mg tablet,delayed release (DR/EC) 5 mg PO DAILY PRN (Reason: constipation) 2 Days Qty: 2 0RF Continued metformin 500 mg tablet 500 mg PO DAILY omeprazole 20 MG capsule,delayed release(DR/EC) 20 mg PO QHS Patient Comments: sertraline 25 mg tablet 25 mg PO DAILY Discontinued lisinopril-hydrochlorothiazide 20-25 mg tablet 1 tab PO DAILY Referrals / Follow Up: Pio Amaya MD [Primary Care Provider] - Within 2 Weeks Disposition Disposition (needs filled in before D/C Order can be placed): Home, Self Care Charges/Coding Visit Charges Inpatient E&M: 03056 Disch Hosp >30min
[2024-04-01 15:01] VITALS: BP 124/71; PULSE 86; RESP 18; TEMP 36.6; O2SAT 97
--- NOTE | 2024-04-01 15:11 | PHA.DC.MC.R ---
Pharmacy [facility] has performed discharge medication reconciliation and counseling for this patient. 1. BISACODYL 5MG PO DAILY PRN CONSTIPATION 2. MIRALAX 17GM PO DAILY The patient's discharge medication list was reviewed for discrepancies and discrepancies were resolved. The patient was counseled on the following discharge medications and changes in medications for homegoing were reviewed. The Reason for Use, instructions for use, and potential side effects were reviewed for all new medications. The patient's questions regarding all of their medications were answered. The patient was able to verbally demonstrate an understanding of their discharge medications. Medications at Discharge Home Medications omeprazole 20 mg capsule,delayed release 20 mg PO QHS 11/22/17 metformin 500 mg tablet 500 mg PO DAILY 01/02/21 sertraline 25 mg tablet 25 mg PO DAILY 03/31/24 bisacodyl 5 mg tablet,delayed release (Dulcolax (bisacodyl)) 5 mg PO DAILY PRN constipation 2 days #2 tabs 04/01/24 lisinopril 20 mg tablet 20 mg PO DAILY #30 tabs 04/01/24 polyethylene glycol 3350 17 gram/dose oral powder (ClearLax) 17 g PO DAILY #119 grams 04/01/24
--- NOTE | 2024-04-01 15:13 | CASEMGMT ---
Patient has order for discharge. RN CM in to discuss needs at discharge. Patient denies needs or help at discharge. Patient had no further questions or concerns at this time.
== END 2024-04-01 15:38 | disposition home or self-care (01) | DRG 641 ==
LOC: ED 03-31 01:37 → PCU 03-31 03:11
PROVIDERS: Admitting Provider Internal Medicine; Emergency Provider Emergency Medicine; PCP Family Medicine
DX: E87.1 Hypo-osmolality and hyponatremia (principal); E11.9 Type 2 diabetes mellitus without complications; I10 Essential (primary) hypertension; F32.A Depression, unspecified; E87.79 Other fluid overload; M17.0 Bilateral primary osteoarthritis of knee; K21.9 Gastro-esophageal reflux disease without esophagitis; K59.00 Constipation, unspecified; K80.20 Calculus of gallbladder without cholecystitis without obstruction; E86.0 Dehydration; E80.7 Disorder of bilirubin metabolism, unspecified; T50.2X5A Adverse effect of carbonic-anhydrase inhibitors, benzothiadiazides and other diuretics, initial encounter; Z79.84 Long term (current) use of oral hypoglycemic drugs; Z79.899 Other long term (current) drug therapy; E66.3 Overweight; Z68.28 Body mass index [BMI] 28.0-28.9, adult; Z96.653 Presence of artificial knee joint, bilateral; Z79.82 Long term (current) use of aspirin
CPT/HCPCS: 36415; 74176; 74181; 80048; 80053; 81001; 82962; 83036; 83690; 83735; 83930; 83935; 84100; 85025; 94668; 97162; 99252; 99285; J7030; A4216; G0463; J2405

== ENCOUNTER → 2024-04-08 | Outpatient (CLI) | payer MEDICARE, SELFPAY ==
[2024-04-08 18:49] LABS: Anion Gap 9 (5-15); BUN 18 mg/dL (7-18); BUN/Creat Ratio 19.9 RATIO (10-20); Calcium,Total 9.4 mg/dL (8.5-10.1); Chloride 90 mmol/L (98-107); Creatinine, Serum 0.91 mg/dL (0.70-1.30); EST Glomerular Filtration Rate 86 mL/min (>60); Est Glom Filt Rate - Afr Amer 104 mL/min (>60); Glucose 122 mg/dL (74-106); Sodium Level 124 mmol/L (136-145)
== END | disposition home or self-care (01) ==
PROVIDERS: PCP Family Medicine; Referring Provider Family Medicine; Visit Provider Family Medicine
DX: E87.1 Hypo-osmolality and hyponatremia (principal)
CPT/HCPCS: 36415; 80048

== ENCOUNTER → 2024-04-16 | Outpatient (CLI) | payer MEDICARE, SELFPAY ==
[2024-04-16 12:45] LABS: Anion Gap 9 (5-15); BUN 20 mg/dL (7-18); BUN/Creat Ratio 24.7 RATIO (10-20); Calcium,Total 9.4 mg/dL (8.5-10.1); Chloride 98 mmol/L (98-107); Creatinine, Serum 0.81 mg/dL (0.70-1.30); EST Glomerular Filtration Rate 98 mL/min (>60); Est Glom Filt Rate - Afr Amer 119 mL/min (>60); Glucose 115 mg/dL (74-106); Potassium 4.3 mmol/L (3.5-5.1); Sodium Level 131 mmol/L (136-145)
== END | disposition home or self-care (01) ==
LOC: MFPLAB 10:31
PROVIDERS: PCP Family Medicine; Visit Provider Family Medicine
DX: E87.1 Hypo-osmolality and hyponatremia (principal)
CPT/HCPCS: 36415; 80048

== ENCOUNTER → 2024-05-21 | Outpatient (CLI) | payer MEDICARE, SELFPAY ==
[2024-05-21 11:32] LABS: Anion Gap 8 (5-15); BUN 22 mg/dL (7-18); BUN/Creat Ratio 22.9 RATIO (10-20); Calcium,Total 9.4 mg/dL (8.5-10.1); Chloride 99 mmol/L (98-107); Creatinine, Serum 0.96 mg/dL (0.70-1.30); EST Glomerular Filtration Rate 80 mL/min (>60); Est Glom Filt Rate - Afr Amer 97 mL/min (>60); Glucose 118 mg/dL (74-106); Potassium 4.2 mmol/L (3.5-5.1); Sodium Level 135 mmol/L (136-145)
[2024-05-21 11:58] LABS: Microalbumin:Creatinine Ratio 13.6 mg/g CRE (<30 mg/g CRE)
== END | disposition home or self-care (01) ==
LOC: LAB 10:41
PROVIDERS: PCP Family Medicine; Referring Provider Internal Medicine Nephrology; Visit Provider Internal Medicine Nephrology
DX: E11.9 Type 2 diabetes mellitus without complications (principal); E87.1 Hypo-osmolality and hyponatremia
CPT/HCPCS: 36415; 80048; 82043; 82570

== ENCOUNTER → 2024-06-02 | Outpatient (CLI) | payer MEDICARE, SELFPAY ==
[2024-06-02 18:11] LABS: Anion Gap 5 (5-15); BUN 22 mg/dL (7-18); BUN/Creat Ratio 23.7 RATIO (10-20); Calcium,Total 9.6 mg/dL (8.5-10.1); Chloride 100 mmol/L (98-107); Creatinine, Serum 0.93 mg/dL (0.70-1.30); EST Glomerular Filtration Rate 84 mL/min (>60); Est Glom Filt Rate - Afr Amer 101 mL/min (>60); Glucose 140 mg/dL (74-106); Potassium 4.1 mmol/L (3.5-5.1); Sodium Level 134 mmol/L (136-145); T4 Free Direct 1.06 ng/dL (0.76-1.46); Thyroid Stim Hormone (TSH) 1.52 uIU/mL (0.358-3.74)
[2024-06-06 12:44] LABS: T4 Total, Thyroxin 7.8 ug/dL (4.5-12.1)
== END | disposition home or self-care (01) ==
LOC: MTLAB 15:59
PROVIDERS: PCP Family Medicine; Referring Provider Internal Medicine Gastroenterology; Visit Provider Internal Medicine Gastroenterology
DX: R19.4 Change in bowel habit (principal)
CPT/HCPCS: 36415; 80048; 84436; 84439; 84443

== ENCOUNTER → 2025-03-03 | Outpatient (CLI) | payer MEDICARE, SELFPAY ==
[2025-03-03 11:58] LABS: Microalbumin:Creatinine Ratio 260.1 mg/g CRE
[2025-03-03 15:00] LABS: ALB/GLOB Ratio 1.6 RATIO (0.9-2.4); AST(SGOT) 20 U/L (<=37); Alanine Aminotransfer ALT/SGPT 12 U/L (<=46); Albumin, Serum 4.2 g/dL (3.4-4.8); Alkaline Phosphatase 58 U/L (40-129); Anion Gap 13 (5-15); BUN 22 mg/dL (4-19); BUN/Creat Ratio 30.3 RATIO (10-20); Calcium,Total 9.7 mg/dL (7.6-11.0); Carbon Dioxide 23.8 mmol/L (21.0-32.0); Chloride 101 mmol/L (98-108); Cholesterol 98 mg/dL (<=200); Creatinine, Serum 0.74 mg/dL (0.70-1.20); EST Glomerular Filtration Rate 93 (>60); Globulin 2.6 g/dL (2.2-4.2); Glucose 133 mg/dL (70-99); High Density Lipoprotein 48 mg/dL; Low Density Lipoprotein Calc. 40 mg/dL; Potassium 4.3 mmol/L (3.3-5.1); Protein, Total 6.8 g/dL (5.9-8.4); Sodium Level 139 mmol/L (133-145); Total Bilirubin 0.58 mg/dL (0.00-1.30); Triglycerides 47 mg/dL; Very Low Density Lipoprotein 9 mg/dL (5-40); cholesterol:hdl ratio screen 2.03
== END | disposition home or self-care (01) ==
LOC: MFPLAB 09:01
PROVIDERS: PCP Family Medicine; Referring Provider Family Medicine; Visit Provider Family Medicine
DX: E11.9 Type 2 diabetes mellitus without complications (principal)
CPT/HCPCS: 36415; 80053; 80061; 82043; 82570

== ENCOUNTER → 2025-07-21 | Outpatient (CLI) | payer MEDICARE, SELFPAY ==
[2025-07-21 13:02] LABS: AST(SGOT) 21 U/L (<=37); Alanine Aminotransfer ALT/SGPT 13 U/L (<=46); Albumin, Serum 4.4 g/dL (3.4-4.8); Alkaline Phosphatase 57 U/L (40-129); Anion Gap 14 (5-15); BUN 25 mg/dL (4-19); BUN/Creat Ratio 31.3 RATIO (10-20); Calcium,Total 9.7 mg/dL (7.6-11.0); Carbon Dioxide 24.0 mmol/L (21.0-32.0); Chloride 99 mmol/L (98-108); Cholesterol 101 mg/dL (<=200); Globulin 2.6 g/dL (2.2-4.2); Glucose 116 mg/dL (70-99); Low Density Lipoprotein Calc. 43 mg/dL; Potassium 4.1 mmol/L (3.3-5.1); Triglycerides 51 mg/dL; Very Low Density Lipoprotein 10 mg/dL (5-40); cholesterol:hdl ratio screen 2.12
[2025-07-21 13:37] LABS: Creatinine, Urine (random) 61.50 mg/dL (39.00-259.00)
[2025-07-21 14:03] LABS: Microalbumin,Random Urine 18.4 mg/L (<20 mg/L)
== END | disposition home or self-care (01) ==
LOC: MFPLAB 09:32
PROVIDERS: PCP Family Medicine; Referring Provider Family Medicine; Visit Provider Family Medicine
DX: I10 Essential (primary) hypertension (principal); E11.9 Type 2 diabetes mellitus without complications
CPT/HCPCS: 36415; 80053; 80061; 82043; 82570